=== PATIENT | female | born 1945 | race Caucasian/White ===

== ENCOUNTER 2018-06-21 15:59 | Inpatient (IN) ==
--- NOTE | 2018-06-21 16:25 | Emergency Department Note ---
Disposition Clinical Impression: Generalized weakness, Candidiasis Anemia Qualifiers: Anemia type: unspecified type Qualified Code(s): D64.9 - Anemia, unspecified Skin ulceration Qualifiers: Non-pressure ulcer stage: limited to breakdown of skin Qualified Code(s): L98.491 - Non-pressure chronic ulcer of skin of other sites limited to breakdown of skin Disposition: Admitted As Inpatient Condition: Undetermined Referrals: Rosita Boyer MD [Primary Care Provider] - Forms: ED Satisfaction Letter Time of Disposition: 20:37 General Adult HPI - General Chief complaint: ED Weakness Stated complaint: weakness Time Seen by Provider: 06/21/18 16:07 Source: patient, family, EMS Mode of arrival: EMS Limitations: no limitations Nursing Notes Reviewed: Yes Vital Signs Reviewed: Yes - History of Present Illness HPI Narrative: 72 ear olf female with history of CHF, anemia arrives to the emergency department with complaint of bilateral groin sores and generalized weakness and inability to care for herself at home. Patient denies any other specific complaint: Fever, chills, abdominal pain. She is uncomfortable on evaluation the room secondary to the ulcerations in her groin. There is no signs of peritoneal findings. No ecchymosis. No signs of gangrene noted. She has good pulses bilateral lower extremity. Her abdomen is nontender to palpation. Vital signs are stable. Patient lucid and answering questions appropriately. Pain Scale: 0 - Related Data Home Medications Medication Instructions Recorded Confirmed Aspirin [Lo-Dose Aspirin EC] 81 mg PO DAILY 04/13/16 06/21/18 Atorvastatin [Lipitor] 40 mg PO HS 04/13/16 06/21/18 Carvedilol [Coreg] 25 mg PO BID 04/13/16 06/21/18 Citalopram [CeleXA] 20 mg PO DAILY 04/13/16 06/21/18 Ezetimibe [Zetia] 10 mg PO DAILY 04/13/16 06/21/18 Furosemide [Lasix] 20 mg PO DAILY 04/13/16 06/21/18 Lisinopril [Zestril] 40 mg PO DAILY 04/13/16 06/21/18 Potassium Chloride [Klor-Con] 20 meq PO DAILY 04/13/16 06/21/18 Allergies Allergy/AdvReac Type Severity Reaction Status Date / Time Sulfa (Sulfonamide Allergy Hives Verified 04/13/16 11:32 Antibiotics) adhesive tape AdvReac Redness of Verified 04/13/16 11:32 Skin All systems ED: reviewed and negative except as stated. Constitutional: Reports: weakness. Denies: fever, chills ENT ED: Denies: dysphagia Cardiovascular: Denies: chest pain Respiratory: Denies: dyspnea Gastrointestinal: Denies: abdominal pain, nausea, vomiting, diarrhea, constipation Genitourinary: Denies: urgency, dysuria, frequency, hematuria, discharge Musculoskeletal: Denies: back pain, neck pain Integumentary: Reports: rash, lesions Neurological: Denies: headache Past Medical History - Past Medical History Attestation: Yes The following information was validated with the patient. Source: patient, old records reviewed Medical history: Reports: cardiomyopathy, CHF, hyperlipidemia Surgical history: Reports: appendectomy, pacemaker/AICD Psychiatric history: Reports: no psych history - Social History Smoking Status: Never smoker Smokeless Tobacco Status: No Alcohol use: Reports: none Drug use: Reports: none Physical Exam - General Limitations: no limitations General appearance: alert, in no apparent distress - Head Head exam: atraumatic, normocephalic, normal inspection - Eye Eye exam: Present: normal appearance, PERRL, EOMI - ENT ENT exam: normal exam, normal oropharynx, mucous membranes moist - Neck Neck exam: Present: normal inspection, full ROM, trachea midline - Chest Chest inspection: Present: normal inspection, symmetric chest wall rise - Respiratory Respiratory exam: Present: normal lung sounds bilaterally - Cardiovascular Cardiovascular exam: Present: regular rate, normal rhythm, normal heart sounds - Abdominal Exam Abdominal exam: Present: soft, Non-Tender. Absent: tenderness, distention, guarding, rebound, rigidity - Extremities Exam Extremities exam: Present: normal inspection, full ROM, normal capillary refill. Absent: tenderness, pedal edema - Neurological Exam Neurological exam: Present: alert, oriented X3 - Skin Skin exam: Present: warm, dry, other (Patient has erythema and seeping wounds with serosanguineous discharge in bilateral groins. Erythematous in this area as well. Nontender to palpation. No crepitus noted.) Course Vital Signs Temperature 98.1 F 06/21/18 16:08 Pulse Rate 59 06/21/18 16:08 Respiratory Rate 18 06/21/18 16:08 Blood Pressure 134/56 06/21/18 16:08 O2 Sat by Pulse Oximetry 100 06/21/18 16:08 Temperature 98.1 F 06/21/18 16:08 Pulse Rate 59 06/21/18 18:54 Respiratory Rate 18 06/21/18 18:54 Blood Pressure 118/56 06/21/18 18:54 O2 Sat by Pulse Oximetry 96 06/21/18 18:54 Oxygen Delivery Oxygen Delivery Room Air Medical Decision Making - MDM Narrative Medical decision making narrative: Patient's evaluation in the emergency department demonstrates an anemia patient at 6.3 hemoglobin. She was transfused 2 units of blood. Patient was also found to have bilateral groin ulcerations secondary to what appears to be candidiasis. There is mild erythematous the patient was given vancomycin and Rocephin as well as 1 dose of Diflucan here in the emergency department. Abdomen pelvis CT scan demonstrates concern for acute cholecystitis but ultrasound of the gallbladder dentures no acute findings other than some biliary sludge. The patient will be admitted to the hospital at this time with concerns for the inability care in aVL, infection of bilateral groins, CHF exacerbation as well as anemia. Patient made aware and agrees to plan. Accepted the hospitalist by Dr. Mae. - Lab Data Lab results reviewed: Yes I reviewed the patient's lab results. Result diagrams: 06/21/18 17:04 06/21/18 17:04 Lab Results 06/21/18 06/21/18 06/21/18 Range/Units 17:04 17:04 17:04 WBC 7.8 (4.3-11.1) K/mcL RBC 3.58 L (3.82-4.97) M/mcL Hgb 6.3 L (11.5-15.4) g/dL Hct 23.5 L (35.3-44.9) % MCV 65.6 L (83.0-100.0) fL MCH 17.6 L (28.0-33.3) pg MCHC 26.8 L (31.6-35.5) g/dL RDW 19.7 H (11.5-14.5) % Plt Count 304 (140-400) K/mcL MPV 8.5 L (9.4-12.4) fL Immature Gran % 0.8 (0-4) % Seg Neutrophils % 71.6 % Lymphocytes % 15.2 % Monocytes % 7.8 % Eosinophils % 4.1 % Basophils % 0.5 % Neutrophils # 5.6 (1.6-8.9) K/mcL Lymphocytes # 1.2 (0.6-4.6) K/mcL Monocytes # 0.6 (0.0-1.3) K/mcL Eosinophils # 0.3 (0.0-0.6) K/mcL Basophils # 0.0 (0.0-0.2) K/mcL Platelet Estimate Normal (Normal) Polychromasia 1+ A (Not Present) Hypochromasia Present A (Not Present) Poikilocytosis 1+ A (Not Present) Anisocytosis 1+ A (Not Present) Ovalocytes 1+ A (Not Present) Sodium 140 (136-145) mEq/L Potassium 4.0 (3.5-5.1) mEq/L Chloride 109 H (98-107) mEq/L Carbon Dioxide 24 (23-29) mEq/L BUN 24 H (8-23) mg/dL Creatinine 0.97 (0.60-1.20) mg/dL Est GFR ( Amer) > 60 (> 60) Est GFR (Non-Af Amer) 56 L (> 60) BUN/Creatinine Ratio 25 (6-26) Glucose 108 H (70-105) mg/dL Calculated Osmolality 295 (280-300) Lactic Acid (0.5-2.2) mmol/L Calcium 9.2 (8.6-10.3) mg/dL Total Bilirubin 0.5 (0.3-1.0) mg/dL Direct Bilirubin 0.1 (0.0-0.2) mg/dL Indirect Bilirubin 0.4 (0.0-1.2) mg/dL AST 9 L (13-39) Units/L ALT 8 (7-52) Units/L Alkaline Phosphatase 32 L (34-104) Units/L B-Natriuretic Peptide 616 H (Less than 100) pg/mL Serum Total Protein 6.6 (6.4-8.9) g/dL Albumin 3.2 L (3.5-5.7) g/dL Globulin 3.4 (2.4-3.5) g/dL Albumin/Globulin Ratio 0.9 L (1.1-2.2) Urine Color (Yellow) Urine Clarity (Clear) Urine pH (5.0-8.0) pH Units Ur Specific [place] (1.010-1.025) Urine Protein (Neg-Trace) mg/dL Urine Glucose (UA) (Normal) mg/dL Urine Ketones (Negative) mg/dL Urine Blood (Negative) Urine Nitrite (Negative) Urine Bilirubin (Negative) Urine Urobilinogen (Normal) mg/dL Ur Leukocyte Esterase (Negative) Urine Microscopic RBC (0-3) per hpf Urine Microscopic WBC (0-3) per hpf Ur Squamous Epith Cells (None-Few) per lpf Urine Bacteria (None-Few) per hpf Hyaline Casts (None-Few) per lpf WBC Casts (None Seen) per lpf Ur Culture Indicated? (NO) Blood Type Antibody Screen Crossmatch 06/21/18 06/21/18 06/21/18 Range/Units 18:05 18:41 18:52 WBC (4.3-11.1) K/mcL RBC (3.82-4.97) M/mcL Hgb (11.5-15.4) g/dL Hct (35.3-44.9) % MCV (83.0-100.0) fL MCH (28.0-33.3) pg MCHC (31.6-35.5) g/dL RDW (11.5-14.5) % Plt Count (140-400) K/mcL MPV (9.4-12.4) fL Immature Gran % (0-4) % Seg Neutrophils % % Lymphocytes % % Monocytes % % Eosinophils % % Basophils % % Neutrophils # (1.6-8.9) K/mcL Lymphocytes # (0.6-4.6) K/mcL Monocytes # (0.0-1.3) K/mcL Eosinophils # (0.0-0.6) K/mcL Basophils # (0.0-0.2) K/mcL Platelet Estimate (Normal) Polychromasia (Not Present) Hypochromasia (Not Present) Poikilocytosis (Not Present) Anisocytosis (Not Present) Ovalocytes (Not Present) Sodium (136-145) mEq/L Potassium (3.5-5.1) mEq/L Chloride (98-107) mEq/L Carbon Dioxide (23-29) mEq/L BUN (8-23) mg/dL Creatinine (0.60-1.20) mg/dL Est GFR ( Amer) (> 60) Est GFR (Non-Af Amer) (> 60) BUN/Creatinine Ratio (6-26) Glucose (70-105) mg/dL Calculated Osmolality (280-300) Lactic Acid 1.4 (0.5-2.2) mmol/L Calcium (8.6-10.3) mg/dL Total Bilirubin (0.3-1.0) mg/dL Direct Bilirubin (0.0-0.2) mg/dL Indirect Bilirubin (0.0-1.2) mg/dL AST (13-39) Units/L ALT (7-52) Units/L Alkaline Phosphatase (34-104) Units/L B-Natriuretic Peptide (Less than 100) pg/mL Serum Total Protein (6.4-8.9) g/dL Albumin (3.5-5.7) g/dL Globulin (2.4-3.5) g/dL Albumin/Globulin Ratio (1.1-2.2) Urine Color Yellow (Yellow) Urine Clarity Clear (Clear) Urine pH 5.5 (5.0-8.0) pH Units Ur Specific [place] 1.016 (1.010-1.025) Urine Protein Trace (Neg-Trace) mg/dL Urine Glucose (UA) Normal (Normal) mg/dL Urine Ketones Negative (Negative) mg/dL Urine Blood Negative (Negative) Urine Nitrite Negative (Negative) Urine Bilirubin Negative (Negative) Urine Urobilinogen Normal (Normal) mg/dL Ur Leukocyte Esterase Small H (Negative) Urine Microscopic RBC 0-3 (0-3) per hpf Urine Microscopic WBC 5-15 H (0-3) per hpf Ur Squamous Epith Cells Many H (None-Few) per lpf Urine Bacteria None Seen (None-Few) per hpf Hyaline Casts Moderate H (None-Few) per lpf WBC Casts Few H (None Seen) per lpf Ur Culture Indicated? NO. A (NO) Blood Type A POSITIVE Antibody Screen NEGATIVE Crossmatch See Detail - Radiology Data Radiology results reviewed: Yes I reviewed the patient's radiology results. Abdomen/Pelvis CT 06/21/18 16:08 IMPRESSION: 1. Possible acute cholecystitis. 2. Benign left adrenal adenoma requires no additional evaluation or follow-up. 3. Calcific atherosclerotic disease aorta. 4. Pelvic ventral hernias contain a portion of colon and a portion of small bowel without evidence of obstruction at this time. 5. Nonspecific right inguinal lymph node enlargement is probably reactive. D/ / Evan Vegas / Evan Vegas Interpreting Provider: Evan Vegas Chest X-Ray 06/21/18 16:08 IMPRESSION: Negative portable chest. D/ / Rah Page MD / Rah Page MD Interpreting Provider: Rah Page MD Gallbladder Ultrasound 06/21/18 18:26 IMPRESSION: Trace amount of sludge in the nondistended gallbladder. No overt findings of acute cholecystitis. D/ / Rah Page MD / Rah Page MD Interpreting Provider: Rah Page MD - EKG Data EKG #2 EKG attestation: Yes I reviewed and interpreted this EKG. EKG results narrative: Heart rate 58 beats for minute. Normal sinus rhythm. No ST elevation noted. E KG similar to EKG from 04/13/2016.
[2018-06-21 17:19] LABS: Basophils % 0.5 %; Eosinophils # 0.3 K/mcL (0.0-0.6); Eosinophils % 4.1 %; Hematocrit 23.5 % (35.3-44.9); Hemoglobin 6.3 g/dL (11.5-15.4); Immature Granulocytes % 0.8 % (0-4); Lymphocytes # 1.2 K/mcL (0.6-4.6); Lymphocytes % 15.2 %; Mean Corpuscular HGB Conc 26.8 g/dL (31.6-35.5); Mean Corpuscular Hemoglobin 17.6 pg (28.0-33.3); Mean Corpuscular Volume 65.6 fL (83.0-100.0); Mean Platelet Volume 8.5 fL (9.4-12.4); Monocytes # 0.6 K/mcL (0.0-1.3); Monocytes % 7.8 %; Neutrophils # 5.6 K/mcL (1.6-8.9); Platelet Count 304 K/mcL (140-400); Red Blood Count 3.58 M/mcL (3.82-4.97); Red Cell Distribution Width 19.7 % (11.5-14.5); Segmented Neutrophils % 71.6 %
[2018-06-21 17:39] LABS: BUN/Creatinine Ratio 25 (6-26); Blood Urea Nitrogen 24 mg/dL (8-23); Calcium 9.2 mg/dL (8.6-10.3); Carbon Dioxide 24 mEq/L (23-29); Chloride 109 mEq/L (98-107); Glucose 108 mg/dL (70-105); Osmolality,Calculated 295 (280-300); Sodium 140 mEq/L (136-145); eGFR For Non-African Americans 56 (> 60)
[2018-06-21 17:42] LABS: Hypochromasia Present (Not Present); Ovalocytes 1+ (Not Present)
[2018-06-21 17:43] LABS: Anisocytosis 1+ (Not Present); Polychromasia 1+ (Not Present)
[2018-06-21 17:44] LABS: Poikilocytosis 1+ (Not Present)
[2018-06-21 17:45] LABS: Platelet Estimate Normal (Normal)
[2018-06-21 18:15] LABS: Bilirubin,Urine Negative (Negative); Blood,Urine Negative (Negative); Clarity,Urine Clear (Clear); Color,Urine Yellow (Yellow); Glucose,Urine (UA) Normal (Normal); Ketones,Urine Negative (Negative); Leukocyte Esterase,Urine Small (Negative); Nitrite,Urine Negative (Negative); PH,Urine 5.5 pH Units (5.0-8.0); Protein,Urine Trace mg/dL (Neg-Trace); Specific Gravity,Urine 1.016 (1.010-1.025); Urobilinogen,Urine Normal (Normal)
[2018-06-21 18:18] LABS: Bacteria,Urine None Seen per hpf (None-Few); Hyaline Casts,Urine Moderate per lpf (None-Few); RBC,Urine 0-3 per hpf (0-3); Squamous Epithelial Cell,Urine Many per lpf (None-Few)
[2018-06-21 18:35] LABS: White Blood Cell Casts,Urine Few per lpf (None Seen)
[2018-06-21] MEDS ORDERED: *HR* FentaNYL (PF) 100 MCG/2 ML VIAL IVP ONE (19:35)
[2018-06-21 20:06] LABS: Alanine Aminotransferase 8 Units/L (7-52); Albumin 3.2 g/dL (3.5-5.7); Albumin/Globulin Ratio 0.9 (1.1-2.2); Alkaline Phosphatase 32 Units/L (34-104); Aspartate Amino Transferase 9 Units/L (13-39); Bilirubin,Direct 0.1 mg/dL (0.0-0.2); Bilirubin,Indirect 0.4 mg/dL (0.0-1.2); Bilirubin,Total 0.5 mg/dL (0.3-1.0); Globulin 3.4 g/dL (2.4-3.5); Total Protein 6.6 g/dL (6.4-8.9)
[2018-06-21] MEDS ORDERED: 0.9 % Sodium Chloride 250 ML ONE (20:20)
--- NOTE | 2018-06-21 20:33 | Emergency Department Note ---
Disposition Clinical Impression: Anemia Qualifiers: Anemia type: unspecified type Qualified Code(s): D64.9 - Anemia, unspecified Disposition: Admitted As Inpatient Condition: Good Referrals: Rosita Boyer MD [Primary Care Provider] - Forms: ED Satisfaction Letter General Adult HPI - General Chief complaint: ED Weakness Stated complaint: weakness Time Seen by Provider: 06/21/18 16:07 Source: patient, family, EMS Mode of arrival: EMS Limitations: no limitations - History of Present Illness Pain Scale: 0 - Related Data Home Medications Medication Instructions Recorded Confirmed Aspirin [Lo-Dose Aspirin EC] 81 mg PO DAILY 04/13/16 06/21/18 Atorvastatin [Lipitor] 40 mg PO HS 04/13/16 06/21/18 Carvedilol [Coreg] 25 mg PO BID 04/13/16 06/21/18 Citalopram [CeleXA] 20 mg PO DAILY 04/13/16 06/21/18 Ezetimibe [Zetia] 10 mg PO DAILY 04/13/16 06/21/18 Furosemide [Lasix] 20 mg PO DAILY 04/13/16 06/21/18 Lisinopril [Zestril] 40 mg PO DAILY 04/13/16 06/21/18 Potassium Chloride [Klor-Con] 20 meq PO DAILY 04/13/16 06/21/18 Allergies Allergy/AdvReac Type Severity Reaction Status Date / Time Sulfa (Sulfonamide Allergy Hives Verified 04/13/16 11:32 Antibiotics) adhesive tape AdvReac Redness of Verified 04/13/16 11:32 Skin Constitutional: Reports: weakness. Denies: fever, chills ENT ED: Denies: dysphagia Cardiovascular: Denies: chest pain Respiratory: Denies: dyspnea Gastrointestinal: Denies: abdominal pain, nausea, vomiting, diarrhea, constipation Genitourinary: Denies: urgency, dysuria, frequency, hematuria, discharge Musculoskeletal: Denies: back pain, neck pain Integumentary: Reports: rash, lesions Neurological: Denies: headache Past Medical History - Past Medical History Medical history: Reports: cardiomyopathy, CHF, hyperlipidemia Surgical history: Reports: appendectomy, pacemaker/AICD Psychiatric history: Reports: no psych history - Social History Smoking Status: Never smoker Smokeless Tobacco Status: No Alcohol use: Reports: none Drug use: Reports: none Physical Exam - General Limitations: no limitations General appearance: alert, in no apparent distress Course Vital Signs Temperature 98.1 F 06/21/18 16:08 Pulse Rate 59 06/21/18 16:08 Respiratory Rate 18 06/21/18 16:08 Blood Pressure 134/56 06/21/18 16:08 O2 Sat by Pulse Oximetry 100 06/21/18 16:08 Temperature 98.1 F 06/21/18 16:08 Pulse Rate 59 06/21/18 18:54 Respiratory Rate 18 06/21/18 18:54 Blood Pressure 118/56 06/21/18 18:54 O2 Sat by Pulse Oximetry 96 06/21/18 18:54 Oxygen Delivery Oxygen Delivery Room Air Medical Decision Making - Lab Data Result diagrams: 06/21/18 17:04 06/21/18 17:04 Lab Results 06/21/18 06/21/18 06/21/18 Range/Units 17:04 17:04 17:04 WBC 7.8 (4.3-11.1) K/mcL RBC 3.58 L (3.82-4.97) M/mcL Hgb 6.3 L (11.5-15.4) g/dL Hct 23.5 L (35.3-44.9) % MCV 65.6 L (83.0-100.0) fL MCH 17.6 L (28.0-33.3) pg MCHC 26.8 L (31.6-35.5) g/dL RDW 19.7 H (11.5-14.5) % Plt Count 304 (140-400) K/mcL MPV 8.5 L (9.4-12.4) fL Immature Gran % 0.8 (0-4) % Seg Neutrophils % 71.6 % Lymphocytes % 15.2 % Monocytes % 7.8 % Eosinophils % 4.1 % Basophils % 0.5 % Neutrophils # 5.6 (1.6-8.9) K/mcL Lymphocytes # 1.2 (0.6-4.6) K/mcL Monocytes # 0.6 (0.0-1.3) K/mcL Eosinophils # 0.3 (0.0-0.6) K/mcL Basophils # 0.0 (0.0-0.2) K/mcL Platelet Estimate Normal (Normal) Polychromasia 1+ A (Not Present) Hypochromasia Present A (Not Present) Poikilocytosis 1+ A (Not Present) Anisocytosis 1+ A (Not Present) Ovalocytes 1+ A (Not Present) Sodium 140 (136-145) mEq/L Potassium 4.0 (3.5-5.1) mEq/L Chloride 109 H (98-107) mEq/L Carbon Dioxide 24 (23-29) mEq/L BUN 24 H (8-23) mg/dL Creatinine 0.97 (0.60-1.20) mg/dL Est GFR ( Amer) > 60 (> 60) Est GFR (Non-Af Amer) 56 L (> 60) BUN/Creatinine Ratio 25 (6-26) Glucose 108 H (70-105) mg/dL Calculated Osmolality 295 (280-300) Lactic Acid (0.5-2.2) mmol/L Calcium 9.2 (8.6-10.3) mg/dL Total Bilirubin 0.5 (0.3-1.0) mg/dL Direct Bilirubin 0.1 (0.0-0.2) mg/dL Indirect Bilirubin 0.4 (0.0-1.2) mg/dL AST 9 L (13-39) Units/L ALT 8 (7-52) Units/L Alkaline Phosphatase 32 L (34-104) Units/L B-Natriuretic Peptide 616 H (Less than 100) pg/mL Serum Total Protein 6.6 (6.4-8.9) g/dL Albumin 3.2 L (3.5-5.7) g/dL Globulin 3.4 (2.4-3.5) g/dL Albumin/Globulin Ratio 0.9 L (1.1-2.2) Urine Color (Yellow) Urine Clarity (Clear) Urine pH (5.0-8.0) pH Units Ur Specific [place] (1.010-1.025) Urine Protein (Neg-Trace) mg/dL Urine Glucose (UA) (Normal) mg/dL Urine Ketones (Negative) mg/dL Urine Blood (Negative) Urine Nitrite (Negative) Urine Bilirubin (Negative) Urine Urobilinogen (Normal) mg/dL Ur Leukocyte Esterase (Negative) Urine Microscopic RBC (0-3) per hpf Urine Microscopic WBC (0-3) per hpf Ur Squamous Epith Cells (None-Few) per lpf Urine Bacteria (None-Few) per hpf Hyaline Casts (None-Few) per lpf WBC Casts (None Seen) per lpf Ur Culture Indicated? (NO) Blood Type Antibody Screen Crossmatch 06/21/18 06/21/18 06/21/18 Range/Units 18:05 18:41 18:52 WBC (4.3-11.1) K/mcL RBC (3.82-4.97) M/mcL Hgb (11.5-15.4) g/dL Hct (35.3-44.9) % MCV (83.0-100.0) fL MCH (28.0-33.3) pg MCHC (31.6-35.5) g/dL RDW (11.5-14.5) % Plt Count (140-400) K/mcL MPV (9.4-12.4) fL Immature Gran % (0-4) % Seg Neutrophils % % Lymphocytes % % Monocytes % % Eosinophils % % Basophils % % Neutrophils # (1.6-8.9) K/mcL Lymphocytes # (0.6-4.6) K/mcL Monocytes # (0.0-1.3) K/mcL Eosinophils # (0.0-0.6) K/mcL Basophils # (0.0-0.2) K/mcL Platelet Estimate (Normal) Polychromasia (Not Present) Hypochromasia (Not Present) Poikilocytosis (Not Present) Anisocytosis (Not Present) Ovalocytes (Not Present) Sodium (136-145) mEq/L Potassium (3.5-5.1) mEq/L Chloride (98-107) mEq/L Carbon Dioxide (23-29) mEq/L BUN (8-23) mg/dL Creatinine (0.60-1.20) mg/dL Est GFR ( Amer) (> 60) Est GFR (Non-Af Amer) (> 60) BUN/Creatinine Ratio (6-26) Glucose (70-105) mg/dL Calculated Osmolality (280-300) Lactic Acid 1.4 (0.5-2.2) mmol/L Calcium (8.6-10.3) mg/dL Total Bilirubin (0.3-1.0) mg/dL Direct Bilirubin (0.0-0.2) mg/dL Indirect Bilirubin (0.0-1.2) mg/dL AST (13-39) Units/L ALT (7-52) Units/L Alkaline Phosphatase (34-104) Units/L B-Natriuretic Peptide (Less than 100) pg/mL Serum Total Protein (6.4-8.9) g/dL Albumin (3.5-5.7) g/dL Globulin (2.4-3.5) g/dL Albumin/Globulin Ratio (1.1-2.2) Urine Color Yellow (Yellow) Urine Clarity Clear (Clear) Urine pH 5.5 (5.0-8.0) pH Units Ur Specific [place] 1.016 (1.010-1.025) Urine Protein Trace (Neg-Trace) mg/dL Urine Glucose (UA) Normal (Normal) mg/dL Urine Ketones Negative (Negative) mg/dL Urine Blood Negative (Negative) Urine Nitrite Negative (Negative) Urine Bilirubin Negative (Negative) Urine Urobilinogen Normal (Normal) mg/dL Ur Leukocyte Esterase Small H (Negative) Urine Microscopic RBC 0-3 (0-3) per hpf Urine Microscopic WBC 5-15 H (0-3) per hpf Ur Squamous Epith Cells Many H (None-Few) per lpf Urine Bacteria None Seen (None-Few) per hpf Hyaline Casts Moderate H (None-Few) per lpf WBC Casts Few H (None Seen) per lpf Ur Culture Indicated? NO. A (NO) Blood Type A POSITIVE Antibody Screen NEGATIVE Crossmatch See Detail Attestation Statement - Attestation Attestation: I examined this patient and my medical decision-making was reviewed with the Resident Physician. I agree with the documented findings, disposition and treatment plan as described except to the extent set forth below. 72 year old female presents to the Ed with complaints of waekness and it appears that she is anemic to 6.9 which is new for her although she has a fmaily histor of fe defecient anemia. Patient states that she most recently was dianogsed with bed bugs in her house and she dnies bloody stools and her last colonscopy was over 20 years ago. She has howveer required transfsions in the past. Patinet ABCT found to be concerning for acute liana, followu RUQ US does now show acute liana. She has also elevaed BNP for CHF. Patient will recieve a blood transfusion and will be admitted to medicine
[2018-06-21] MEDS ORDERED: cefTRIAXone 1,000 MG in Water for inj. (sterile) 20 ML 10 ML IVP ONE (20:34)
[2018-06-21] MEDS ORDERED: Fluconazole 100 MG TABLET PO ONE (20:34)
[2018-06-21 20:39] LABS: INR 1.4; Prothrombin Time 16.3 Seconds (9.4-12.1)
[2018-06-21 20:41] LABS: Activated Partial Thrombo Time 30.6 Seconds (26.0-36.0)
[2018-06-21] MEDS ORDERED: Naloxone 0.4 MG/ML INJ IVP PRN (23:00)
--- NOTE | 2018-06-21 23:03 | Internal Med History&Physical ---
Date of Encounter: 06/21/18 Time of Encounter: 22:40 Internal Medicine - H&P: HPI Chief complaint: Generalized weakness History of present illness: Ms. Maddox is a 72 year old female with a past medical history of cardiomyopathy status post ICD, hypertension, CHF, and hyperlipidemia who presented to the ED with complaints of generalized weakness, malaise and family's concern for her inability to care for herself anymore. Patient states that she has been feeling weak for the past month. She reports that she typically craves ice when she is anemic and should have suspected that her counts were down. Patient reports that the last time she had her blood work done was about 5 months ago and states that her hemoglobin was relatively normal at this time. She denies any dark looking stools or blood in her stool. Denies being on any blood thinner however, has been taking NSAIDs chronically, specifically ibuprofen, on and off for the past year for her arthritis. Patient states she has been taking it almost daily up until a few days ago. She denies any epigastric pain but does report nausea. Patient also endorses dyspnea with exertion and states that she has been taking her Lasix every other day as opposed to daily for the past 2 weeks due to her dyspnea and having to get up and go to the bathroom frequently. She was noted to have a hemoglobin of 6.3. 2 units of packed red blood cells were ordered in the ED. Patient was noted to have bilateral growing ulcerations secondary to what appears to be fungal infection. CT of the abdomen was performed which showed findings concerning for acute cholecystitis. Right upper quadrant ultrasound was performed subsequently which demonstrated no evidence of stones, however, some biliary sludge was noted. Patient is being admitted for anemia concerning for GI bleed. Past Med Surg Social Fam HX - Past Medical History Medical history: cardiomyopathy, CHF, hyperlipidemia Psychiatric history: no psych history - Past Surgical History Surgical History: appendectomy, pacemaker/AICD Additional surgical history: T&A - Social History Smoking Status: Never smoker Smokeless Tobacco Status: No Alcohol use: none Drug use: none - Family History Mother Hx Family Cardiac Disorders: Yes Father Hx Family GI Disorders: Yes Internal Medicine - H&P: Meds Aspirin [Lo-Dose Aspirin EC] 81 mg PO DAILY 04/13/16 [History] Atorvastatin [Lipitor] 40 mg PO HS 04/13/16 [History] Carvedilol [Coreg] 25 mg PO BID 04/13/16 [History] Citalopram [CeleXA] 20 mg PO DAILY 04/13/16 [History] Ezetimibe [Zetia] 10 mg PO DAILY 04/13/16 [History] Furosemide [Lasix] 20 mg PO DAILY 04/13/16 [History] Lisinopril [Zestril] 40 mg PO DAILY 04/13/16 [History] Potassium Chloride [Klor-Con] 20 meq PO DAILY 04/13/16 [History] Allergy/AdvReac Type Severity Reaction Status Date / Time Sulfa (Sulfonamide Allergy Hives Verified 04/13/16 11:32 Antibiotics) adhesive tape AdvReac Redness of Verified 04/13/16 11:32 Skin All Systems PM: A 10-system review of systems was performed and is negative for pertinent findings except as documented above in the HPI. - Constitutional Constitutional: no chills, no fever(s), no night sweats - EENT Eyes: no change in vision, no discharge, no pain, no photophobia Ears: no ear discharge, no ear pain, no tinnitus Nose, mouth and throat: no dysphagia, no nasal discharge, no neck pain, no sore throat - Cardiovascular Cardiovascular ROS IM: no chest pain, no diaphoresis, no dyspnea, no lightheadedness, no palpitations, no syncope - Respiratory Respiratory: no cough, no dyspnea, no wheezing, no excessive phlegm production - Gastrointestinal Gastrointestinal: no abdominal pain, no diarrhea, no hematemesis, no hematochezia, no melena, no nausea, no vomiting - Genitourinary Genitourinary: no change in urinary stream, no dysuria, no flank pain, no hematuria - Musculoskeletal Musculoskeletal ROS IM: no numbness, no tingling - Integumentary Integumentary IM: no rash, no unusual bruising - Neurological Neurological ROS: no confusion, no convulsions, no focal weakness, no numbness, no tingling, no tremor(s) - Hematologic/Lymphatic Hematologic/Lymphatic: no easy bruising - Constitutional Vitals: Temp Pulse Resp BP Pulse Ox 98.1 F 61 18 134/51 100 06/21/18 21:01 06/21/18 21:01 06/21/18 21:01 06/21/18 21:01 06/21/18 21:01 Exam: General: Alert and oriented 3 lying in bed in no acute distress Skin: Erythema within the abdominal skin folds with foul-smelling odor HEENT:EOM, pupils equal, round and reactive. Cardiovascular:Normal S1 & S2, no rubs, murmurs or gallops. No JVD. Pulse regular. Lungs:Normal breath sounds, no wheezes or crackles. Abdomen:Soft, non-tender, no rigidity. Extremities:No deformity, 2+ pitting edema up to the mid gold. Neurological:Normal cognition and motor skills. Pulses:Carotid and radial pulses normal +2. Rest of the physical exam is non contributory Internal Med - H&P Results - Labs CBC & Chem 7: 06/22/18 06:34 06/22/18 06:34 Labs: Short CBC 06/21/18 Range/Units 17:04 WBC 7.8 (4.3-11.1) K/mcL Hgb 6.3 L (11.5-15.4) g/dL Hct 23.5 L (35.3-44.9) % Plt Count 304 (140-400) K/mcL Neutrophils # 5.6 (1.6-8.9) K/mcL BMP 06/21/18 17:04 Sodium 140 Potassium 4.0 Chloride 109 H Carbon Dioxide 24 BUN 24 H Creatinine 0.97 Glucose 108 H Calcium 9.2 Liver Function 06/21/18 Range/Units 17:04 Total Bilirubin 0.5 (0.3-1.0) mg/dL Direct Bilirubin 0.1 (0.0-0.2) mg/dL AST 9 L (13-39) Units/L ALT 8 (7-52) Units/L Alkaline Phosphatase 32 L (34-104) Units/L Albumin 3.2 L (3.5-5.7) g/dL Urine 06/21/18 Range/Units 18:05 Urine Color Yellow (Yellow) Urine Clarity Clear (Clear) Urine pH 5.5 (5.0-8.0) pH Units Ur Specific [place] 1.016 (1.010-1.025) Urine Protein Trace (Neg-Trace) mg/dL Urine Glucose (UA) Normal (Normal) mg/dL - Impressions ITS Impressions Abdomen/Pelvis CT 06/21/18 16:08 IMPRESSION: 1. Possible acute cholecystitis. 2. Benign left adrenal adenoma requires no additional evaluation or follow-up. 3. Calcific atherosclerotic disease aorta. 4. Pelvic ventral hernias contain a portion of colon and a portion of small bowel without evidence of obstruction at this time. 5. Nonspecific right inguinal lymph node enlargement is probably reactive. D/ / Evan Vegas / Evan Vegas Interpreting Provider: Evan Vegas Chest X-Ray 06/21/18 16:08 IMPRESSION: Negative portable chest. D/ / Rah Page MD / Rah Page MD Interpreting Provider: Rah Page MD Gallbladder Ultrasound 06/21/18 18:26 IMPRESSION: Trace amount of sludge in the nondistended gallbladder. No overt findings of acute cholecystitis. D/ / Rah Page MD / Rah Page MD Interpreting Provider: Rah Page MD - Assessment and Plan (1) Anemia Current Visit: Yes Status: Acute Assessment and plan: Microcytic anemia concerning for upper GI bleed given patient's history of chronic NSAID use. Patient reports last colonoscopy approximately 20 years ago. Denies any melena or hematochezia. -Continue with transfusion of 2 units of packed red blood cells -We will check for stool occult blood -We will start patient on Protonix 40 mg IV push twice a day -GI consult. We will keep patient NPO any event she will require upper endoscopy in the morning. Qualifiers: Qualified Code(s): D64.9 - Anemia, unspecified (2) Candidiasis Current Visit: Yes Status: Acute Assessment and plan: Intertriginous erythema suspicious for candidiasis. -Continue with fluconazole -Nystatin powder (3) Generalized weakness Current Visit: Yes Status: Acute Assessment and plan: Generalized weakness in the setting of significant anemia. Likely contributing factor. -Continue blood transfusion -We will obtain echocardiogram (4) Exertional dyspnea Current Visit: Yes Status: Acute Assessment and plan: Exertional dyspnea likely secondary to anemia. Also concern for mild CHF exacerbation given medication noncompliance. Patient reports taking her Lasix every other day as opposed to daily. -At this time we will continue blood transfusion -We will obtain echocardiogram -Hold Lasix for now (5) DVT prophylaxis Current Visit: Yes Status: Acute - Time Spent With Patient Total time spent is greater than 50% in coordination of care (as documented) at patient's floor/unit and/or counseling patient:
[2018-06-22] MEDS ORDERED: 0.9 % Sodium Chloride 250 ML ONE (00:39)
[2018-06-22] MEDS: Ondansetron 4 MG/2 ML VIAL IVP SCH ×4 (00:53→18:55)
[2018-06-22] MEDS: Nystatin POWDER 30 GM BOTTLE TP SCH ×4 (01:11→22:20)
[2018-06-22] MEDS ORDERED: OXYCODONE Oral CONC 10 MG/0.5 ML ORAL.SYG SL ONE (03:14)
[2018-06-22] MEDS: Pantoprazole 40 MG VIAL IVP SCH ×2 (06:18→16:30)
[2018-06-22 06:53] LABS: Red Blood Count 4.04 M/mcL (3.82-4.97)
[2018-06-22 06:54] LABS: Hematocrit 27.4 % (35.3-44.9); Hemoglobin 7.5 g/dL (11.5-15.4); Mean Corpuscular HGB Conc 27.4 g/dL (31.6-35.5); Mean Corpuscular Hemoglobin 18.6 pg (28.0-33.3); Mean Corpuscular Volume 67.8 fL (83.0-100.0); Mean Platelet Volume 8.7 fL (9.4-12.4); Platelet Count 283 K/mcL (140-400); Red Cell Distribution Width 22.7 % (11.5-14.5)
[2018-06-22 07:02] LABS: INR 1.4
[2018-06-22 07:04] LABS: Activated Partial Thrombo Time 30.9 Seconds (26.0-36.0)
[2018-06-22 07:15] LABS: BUN/Creatinine Ratio 26 (6-26); Blood Urea Nitrogen 24 mg/dL (8-23); Calcium 9.3 mg/dL (8.6-10.3); Carbon Dioxide 25 mEq/L (23-29); Chloride 109 mEq/L (98-107); Glucose 122 mg/dL (70-105); Osmolality,Calculated 301 (280-300); Potassium 4.2 mEq/L (3.5-5.1); Sodium 143 mEq/L (136-145); eGFR For Non-African Americans 59 (> 60)
[2018-06-22 09:20] LABS: % Iron Saturation 5 % (15-50); Iron 18 mcg/dL (50-170); Transferrin 285 mg/dL (203-362)
[2018-06-22] MEDS: Aspirin Enteric Coated 81 MG Tablet PO SCH (09:24)
[2018-06-22] MEDS: Lisinopril 20 MG TABLET PO SCH (09:26)
[2018-06-22] MEDS: (Ezetimibe [Zetia] 10 MG) PO SCH (09:31)
[2018-06-22 09:38] LABS: Ferritin 8 ng/mL (10-120)
[2018-06-22 09:55] LABS: Folate 3.4 ng/mL (3.0-16.0)
--- NOTE | 2018-06-22 11:20 | Anesthesia Evaluation PreOp ---
Date of Encounter: 06/22/18 Time of Encounter: 11:18 - Past History Planned Operation: EGD Cardiac History: CHF, HTN, Hyperlipidemia, Pacemaker/ICD (interogated today - Last non sustained run VT 05/20/2018), Other (Cardiomyopathy) Pulmonary History: Denies Any Significant HX REGISTERED APPRAISER History: Other (anxiety) Other Medical History: Other (GI bleed - transfused with 2 u PRBC this admission) Anesthesia History: No Prior Anesthetic Complications, Past Anesthesia (T&A, AICD, appy) : No Alcohol Use: none Drug use: none Medications and Allergies Aspirin [Lo-Dose Aspirin EC] 81 mg PO DAILY 04/13/16 [History] Atorvastatin [Lipitor] 40 mg PO HS 04/13/16 [History] Carvedilol [Coreg] 25 mg PO BID 04/13/16 [History] Citalopram [CeleXA] 20 mg PO DAILY 04/13/16 [History] Ezetimibe [Zetia] 10 mg PO DAILY 04/13/16 [History] Furosemide [Lasix] 20 mg PO DAILY 04/13/16 [History] Lisinopril [Zestril] 40 mg PO DAILY 04/13/16 [History] Potassium Chloride [Klor-Con] 20 meq PO DAILY 04/13/16 [History] Allergy/AdvReac Type Severity Reaction Status Date / Time Sulfa (Sulfonamide Allergy Hives Verified 04/13/16 11:32 Antibiotics) adhesive tape AdvReac Redness of Verified 04/13/16 11:32 Skin - Meds/Allergy Pre-op Review Medications Reviewed: Yes Allergies Reviewed: Yes Beta Blockers on Current Med List: Yes If Beta Blockers taken, Date/Time (Last Dose taken): 09:25 today Anesthesia Results - Labs 06/22/18 06:34 06/22/18 06:34 - Imaging EKG: report reviewed (Sinus arrhythmia IVCD Nonspecific ST-T wave changes) Additional studies: Echo with Imaging Enhancement Agent Name: Mckenzie Maddox Date of Study: 03/08/2016 Impressions: LVEF 60%. Normal LV chamber size and function. Mild concentric left ventricular hypertrophy. Mild left ventricular diastolic dysfunction. Right ventricle was not well visualized. No evidence of pulmonary hypertension identified. A device lead was visualized in the right atrium and right ventricle. Technically sub-optimal due to body habitus. Anesthesia Exam Vital Signs/O2 Sat, Most Current Temp Pulse Resp BP Pulse Ox 97.8 F 69 18 132/68 98 06/22/18 10:06/22/18 10:06/22/18 10:06/22/18 10:06/22/18 10:26 NPO (# of Hours): > 8 hrs Pain Scale: 0 Pain Scale Used: Numeric (1 - 10) - HEENT Pupil (Motor): Pupils equal, EOMI Mallampati: III Teeth: Missing Denture Type: Upper: Partial Oral Opening: Greater than 3 - REGISTERED APPRAISER LOC: Oriented REGISTERED APPRAISER Motor: Normal RUE, Normal LUE, Normal RLE, Normal LLE, Normal Face REGISTERED APPRAISER Sensory: Normal: RUE, LUE, RLE, LLE, Face - Cardiac Rhythm: Regular Murmur: None JVD: No Carotid Bruit: No - Pulmonary Breath Sounds: bilateral Clear Respiratory Effort: Symmetrical Anesthesia Assess/Plan ASA Score: 3 Anesthetic Plan: MAC Autologous Blood: Yes Monitoring Plan: Standard Monitors Recovery Plan: Other
--- NOTE | 2018-06-22 12:58 | Gastroenterology Consult Note ---
<Pillo Moran - Last Filed: 06/22/18 12:53> Date of Encounter: 06/22/18 Time of Encounter: 10:30 - Assessment and plan (1) Anemia Current Visit: Yes Status: Acute Assessment and plan: On admission, Hgb 6.3 with MCV 65.6. This AM Hgb 7.5 after 2 units PRBC. Fecal occult blood test was positive. Continue to monitor CBC and transfuse PRBC as needed. Plan for EGD today to r/o esophagitis, gastritis, duodenitis, PUD, MW tear, or AVM. Keep NPO for EGD. Qualifiers: Anemia type: unspecified type Qualified Code(s): D64.9 - Anemia, unspecified - Time Spent With Patient Total time spent is greater than 50% in coordination of care (as documented) at patient's floor/unit and/or counseling patient: GI History of Present Illness - Data of Consult Patient: new to practice Consult date: 06/22/18 Requesting Physician: Faviola Mae MD - Consult Narrative Reason for consult: anemia History of present illness: Ms. Maddox is a 72 year old female with PMHx of cardiomyopathy s/p ICD, CHF, HLD who presented to the ED with complaints of generalized weakness, malaise and family's concern for her inability to care for herself anymore. Patient states that she has been feeling weak for the past month. We were consulted to evaluate her anemia. She states she has been using ibuprofen chronically for the past year for her arthritis. On admission, Hgb 6.3 with MCV 65.6. This AM Hgb 7.5 after 2 units PRBC. Fecal occult blood test was positive. CT A/P with possible acute cholecystitis. Gallbladder ultrasound with shared amount of sludge and nondistended gallbladder, no acute cholecystitis noted. Procedures: None NSAIDs: ASA Anticoagulation: None Past Med Surg Social Fam HX - Past Medical History Medical history: cardiomyopathy, CHF, hyperlipidemia Psychiatric history: no psych history - Past Surgical History Surgical History: appendectomy, pacemaker/AICD Additional surgical history: T&A - Social History Smoking Status: Never smoker Smokeless Tobacco Status: No Alcohol use: none Drug use: none - Family History Father Hx Family GI Disorders: Yes Mother Hx Family Cardiac Disorders: Yes - Gastrointestinal Gastrointestinal: Present: as per HPI - Constitutional Constitutional: as per HPI - EENT Eyes: as per HPI Ears: Present: as per HPI Nose, mouth and throat: Present: as per HPI - Cardiovascular Cardiovascular ROS: Present: as per HPI - Respiratory Respiratory IM: Present: as per HPI - Genitourinary Genitourinary: Absent: change in color, Urinary frequency - Neurological ROS Neurological GI: Present: as per HPI - Hematologic/Lymphatic Hematologic/Lymphatic pediatric: Present: as per HPI - Musculoskeletal Musculoskeletal ROS GI: Present: as per HPI - Integumentary Integumentary GI: Present: as per HPI - Psychiatric ROS Psychiatric GI: Present: as per HPI - Endocrine Endocrine IM: Present: as per HPI - Constitutional Vitals: Temp Pulse Resp BP Pulse Ox 97.8 F 69 18 132/68 98 06/22/18 10:26 06/22/18 10:26 06/22/18 10:26 06/22/18 10:26 06/22/18 10:26 General appearance: Present: cooperative, A&O X 3, no acute distress, answers questions appropriately - Head Head exam: Present: atraumatic, normocephalic - Eye Eye exam: Present: normal appearance, sclera anicteric - ENT ENT exam: Present: mucous membranes dry - Neck Neck exam general surgery: Present: normal inspection, trachea midline - Respiratory Respiratory exam: Present: decreased breath sounds, CTAB. Absent: rales, rhonchi - Cardiovascular Cardiovascular exam: Present: RRR, +S1, +S2 - GI/Abdominal GI/Abdominal exam: Present: soft, no peritoneal signs. Absent: distended, firm, guarding, tenderness - Rectal Rectal exam: Present: deferred - Extremities Exam Extremities exam: Present: warm - Neurological Exam Neurological exam: Present: no focal deficits - Psychiatric Psychiatric exam: Present: normal affect, normal mood - Skin Skin exam: Present: dry, intact, normal color, warm Results - Labs CBC & Chem 7: 06/22/18 06:34 06/22/18 06:34 Labs: Last Result Calcium 9.3 mg/dL (8.6-10.3) 06/22/18 06:34 Iron 18 mcg/dL (50-170) L 06/22/18 06:34 % Saturation 5 % (15-50) L 06/22/18 06:34 Transferrin 285 mg/dL (203-362) 06/22/18 06:34 Ferritin 8 ng/mL (10-120) L 06/22/18 06:34 Vitamin B12 695 pg/mL (250-1100) 06/22/18 06:33 Folate 3.4 ng/mL (3.0-16.0) 06/22/18 06:33 Entire Visit Hgb 7.5 g/dL (11.5-15.4) L 06/22/18 06:34 Hct 27.4 % (35.3-44.9) L 06/22/18 06:34 PT 16.0 Seconds (9.4-12.1) H 06/22/18 06:34 Ferritin 8 ng/mL (10-120) L 06/22/18 06:34 Total Bilirubin 0.5 mg/dL (0.3-1.0) 06/21/18 17:04 AST 9 Units/L (13-39) L 06/21/18 17:04 ALT 8 Units/L (7-52) 06/21/18 17:04 Folate 3.4 ng/mL (3.0-16.0) 06/22/18 06:33 - ABG ABG results: PT/INR, D-dimer PT 16.0 Seconds (9.4-12.1) H 06/22/18 06:34 - Impressions Impressions Abdomen/Pelvis CT 06/21/18 16:08 IMPRESSION: 1. Possible acute cholecystitis. 2. Benign left adrenal adenoma requires no additional evaluation or follow-up. 3. Calcific atherosclerotic disease aorta. 4. Pelvic ventral hernias contain a portion of colon and a portion of small bowel without evidence of obstruction at this time. 5. Nonspecific right inguinal lymph node enlargement is probably reactive. D/ / Evan Vegas / Evan Vegas Interpreting Provider: Evan Vegas Chest X-Ray 06/21/18 16:08 IMPRESSION: Negative portable chest. D/ / Rah Page MD / Rah Page MD Interpreting Provider: Rah Page MD Gallbladder Ultrasound 06/21/18 18:26 IMPRESSION: Trace amount of sludge in the nondistended gallbladder. No overt findings of acute cholecystitis. D/ / Rah Page MD / Rah Page MD Interpreting Provider: Rah Page MD Echocardiogram 06/22/18 10:30 Impressions: LVEF 60%. Not all LV wall segments were optimally visualized. Moderate left ventricular diastolic dysfunction. Normal right ventricular structure and function. Mild mitral regurgitation. Mild tricuspid regurgitation. No pulmonary hypertension by TR signal obtained. A device lead was visualized in the right atrium and right ventricle. Left Ventricular Wall Motion: Rest Echo Findings The apical anterior, mid anterior and basal anterior you were not visualized. All other wall segments showed normal motion. Findings: Study Quality * Technically challenging due to body habitus. Patient had difficulty cooperating with exam. ECG Findings * Sinus bradycardia, HR 50's. Left Ventricle * LVEF 60%. * Normal LV chamber size. * Wall thickness measurements are normal on this study. * Moderate left ventricular diastolic dysfunction. Right Ventricle * Normal right ventricular structure and function. Left Atrium * Mildly dilated left atrium. Right Atrium * Normal right atrial size. Aortic Valve * No aortic regurgitation. * Aortic valve not well visualized. * No aortic stenosis. Mitral Valve * Mild mitral regurgitation. * Normal mitral valve structure. * No mitral stenosis. Tricuspid Valve * Tricuspid valve not well visualized. * Mild tricuspid regurgitation. Pulmonic Valve * Pulmonic valve is not well visualized. * No pulmonic stenosis. * No pulmonic regurgitation. Pulmonary Artery * Pulmonary artery not well visualized. Aorta * Normally sized aortic root. Pericardium * There is no pericardial effusion present. Interatrial Septum * Interatrial septum not well evaluated. IVC * The IVC is not well evaluated. Device lead * A device lead was visualized in the right atrium and right ventricle. Consult Discharge Plan - Plan Referrals: Mitul Helms MD [Non-Partnered Physician] - 06/29/18 11:00 am <Grayson Devine - Last Filed: 06/28/18 05:39> Date of Encounter: 06/22/18 - Time Spent With Patient Total time spent is greater than 50% in coordination of care (as documented) at patient's floor/unit and/or counseling patient: GI History of Present Illness - Data of Consult Requesting Physician: Faviola Mae MD - Consult Narrative History of present illness: Ms. Maddox is a 72 year old female - Constitutional Vitals: Temp Pulse Resp BP Pulse Ox 98.1 F 61 16 110/61 93 06/28/18 04:03 06/28/18 04:03 06/28/18 04:03 06/28/18 04:03 06/28/18 04:03 Results - Labs CBC & Chem 7: 06/28/18 04:00 06/28/18 04:00 Labs: Last Result Calcium 9.0 mg/dL (8.6-10.3) 06/28/18 04:00 Iron 183 mcg/dL (50-170) H 06/28/18 04:00 % Saturation 50 % (15-50) 06/28/18 04:00 Transferrin 259 mg/dL (203-362) 06/28/18 04:00 Ferritin 8 ng/mL (10-120) L 06/22/18 06:34 Vitamin B12 695 pg/mL (250-1100) 06/22/18 06:33 Folate 3.4 ng/mL (3.0-16.0) 06/22/18 06:33 Stool Occult Blood Negative (Negative) 06/25/18 13:00 Entire Visit Hgb 7.8 g/dL (11.5-15.4) L 06/28/18 04:00 Hct 28.7 % (35.3-44.9) L 06/28/18 04:00 PT 16.0 Seconds (9.4-12.1) H 06/22/18 06:34 Ferritin 8 ng/mL (10-120) L 06/22/18 06:34 Total Bilirubin 0.5 mg/dL (0.3-1.0) 06/21/18 17:04 AST 9 Units/L (13-39) L 06/21/18 17:04 ALT 8 Units/L (7-52) 06/21/18 17:04 Folate 3.4 ng/mL (3.0-16.0) 06/22/18 06:33 - ABG ABG results: PT/INR, D-dimer PT 16.0 Seconds (9.4-12.1) H 06/22/18 06:34 - Attending Attestation Agree with EGD Plan that today. I have personally performed a face to face evaluation on this patient. I have reviewed and agree with the care plan. History and Exam by me shows:
[2018-06-22] MEDS ORDERED: *HR* Propofol 200 MG/20 ML VIAL IVP ONE (13:38)
--- NOTE | 2018-06-22 14:47 | Internal Med Progress Note ---
Hospitalist Progress Note - Encounter Date of Encounter: 06/22/18 Time of Encounter: 14:47 - Subjective Interval History: Patient was seen and examined at bedside currently complains of back pain she is to undergo EGD today no signs or symptoms of active bleeding - Exam Vitals: Temp Pulse Resp BP Pulse Ox 97.8 F 60 16 137/60 96 06/22/18 10:26 06/22/18 14:35 06/22/18 14:35 06/22/18 14:35 06/22/18 14:35 Exam: General: Alert and oriented 3 lying in bed in no acute distress Skin: Erythema within the abdominal skin folds HEENT:EOM, pupils equal, round and reactive. Cardiovascular:Normal S1 & S2, no rubs, murmurs or gallops. No JVD. Pulse regular. Lungs:Normal breath sounds, no wheezes or crackles. Abdomen:Soft, non-tender, no rigidity. Extremities:No deformity, 2+ pitting edema up to the mid gold. Neurological:Normal cognition and motor skills. Pulses:Carotid and radial pulses normal +2. Rest of the physical exam is non contributory - Assessment and Plan (1) Anemia Current Visit: Yes Status: Acute Assessment and Plan: Microcytic anemia concerning for upper GI bleed given patient's history of chronic NSAID use. Patient reports last colonoscopy approximately 20 years ago. Denies any melena or hematochezia. Patient has received 2 units PRBCs hemoglobin this a.m. is 7.5 we will continue to monitor closely. I did discuss with GI no further transfusions at this time -stool occult blood positive -Continue Protonix 40 mg IV push twice a day -GI consult. We will keep patient NPO any event she will require upper endoscopy (2) Generalized weakness Current Visit: Yes Status: Acute Assessment and Plan: Generalized weakness in the setting of significant anemia. Likely contributing factor. -Received 2 units PRBCs -We will obtain echocardiogram Consult PT OT (3) Candidiasis Current Visit: Yes Status: Acute Assessment and Plan: Intertriginous erythema suspicious for candidiasis. -Continue with fluconazole -Nystatin powder (4) DVT prophylaxis Current Visit: Yes Status: Acute Assessment and Plan: 1 SCDs due to anemia (5) Exertional dyspnea Current Visit: Yes Status: Acute Assessment and Plan: Exertional dyspnea likely secondary to anemia. Also concern for mild CHF exacerbation given medication noncompliance. Patient reports taking her Lasix every other day as opposed to daily. -2 units PRBCs -We will obtain echocardiogram-pending -Hold Lasix for now - Time Spent with Patient Total time spent is greater than 50% in coordination of care (as documented) at patient's floor/unit and/or counseling patient: Internal Medicine: Result - Labs CBC & Chem 7: 06/22/18 06:34 06/22/18 06:34 Labs: Short CBC 06/21/18 06/22/18 Range/Units 17:04 06:34 WBC 7.8 7.6 (4.3-11.1) K/mcL Hgb 6.3 L 7.5 L (11.5-15.4) g/dL Hct 23.5 L 27.4 L (35.3-44.9) % Plt Count 304 283 (140-400) K/mcL Neutrophils # 5.6 (1.6-8.9) K/mcL BMP 06/21/18 06/22/18 17:04 06:34 Sodium 140 143 Potassium 4.0 4.2 Chloride 109 H 109 H Carbon Dioxide 24 25 BUN 24 H 24 H Creatinine 0.97 0.94 Glucose 108 H 122 H Calcium 9.2 9.3 Liver Function 06/21/18 Range/Units 17:04 Total Bilirubin 0.5 (0.3-1.0) mg/dL Direct Bilirubin 0.1 (0.0-0.2) mg/dL AST 9 L (13-39) Units/L ALT 8 (7-52) Units/L Alkaline Phosphatase 32 L (34-104) Units/L Albumin 3.2 L (3.5-5.7) g/dL Urine 06/21/18 Range/Units 18:05 Urine Color Yellow (Yellow) Urine Clarity Clear (Clear) Urine pH 5.5 (5.0-8.0) pH Units Ur Specific [place] 1.016 (1.010-1.025) Urine Protein Trace (Neg-Trace) mg/dL Urine Glucose (UA) Normal (Normal) mg/dL - ABG Interpretation ABG results: PT/INR, D-dimer PT 16.0 Seconds (9.4-12.1) H 06/22/18 06:34 - Impressions Impressions Abdomen/Pelvis CT 06/21/18 16:08 IMPRESSION: 1. Possible acute cholecystitis. 2. Benign left adrenal adenoma requires no additional evaluation or follow-up. 3. Calcific atherosclerotic disease aorta. 4. Pelvic ventral hernias contain a portion of colon and a portion of small bowel without evidence of obstruction at this time. 5. Nonspecific right inguinal lymph node enlargement is probably reactive. D/ / Evan Vegas / Evan Vegas Interpreting Provider: Evan Vegas Chest X-Ray 06/21/18 16:08 IMPRESSION: Negative portable chest. D/ / Rah Page MD / Rah Page MD Interpreting Provider: Rah Page MD Gallbladder Ultrasound 06/21/18 18:26 IMPRESSION: Trace amount of sludge in the nondistended gallbladder. No overt findings of acute cholecystitis. D/ / Rah Page MD / Rah Page MD Interpreting Provider: Rah Page MD Echocardiogram 06/22/18 10:30 Impressions: LVEF 60%. Not all LV wall segments were optimally visualized. Moderate left ventricular diastolic dysfunction. Normal right ventricular structure and function. Mild mitral regurgitation. Mild tricuspid regurgitation. No pulmonary hypertension by TR signal obtained. A device lead was visualized in the right atrium and right ventricle. Left Ventricular Wall Motion: Rest Echo Findings The apical anterior, mid anterior and basal anterior you were not visualized. All other wall segments showed normal motion. Findings: Study Quality * Technically challenging due to body habitus. Patient had difficulty cooperating with exam. ECG Findings * Sinus bradycardia, HR 50's. Left Ventricle * LVEF 60%. * Normal LV chamber size. * Wall thickness measurements are normal on this study. * Moderate left ventricular diastolic dysfunction. Right Ventricle * Normal right ventricular structure and function. Left Atrium * Mildly dilated left atrium. Right Atrium * Normal right atrial size. Aortic Valve * No aortic regurgitation. * Aortic valve not well visualized. * No aortic stenosis. Mitral Valve * Mild mitral regurgitation. * Normal mitral valve structure. * No mitral stenosis. Tricuspid Valve * Tricuspid valve not well visualized. * Mild tricuspid regurgitation. Pulmonic Valve * Pulmonic valve is not well visualized. * No pulmonic stenosis. * No pulmonic regurgitation. Pulmonary Artery * Pulmonary artery not well visualized. Aorta * Normally sized aortic root. Pericardium * There is no pericardial effusion present. Interatrial Septum * Interatrial septum not well evaluated. IVC * The IVC is not well evaluated. Device lead * A device lead was visualized in the right atrium and right ventricle. Consult Discharge Plan - Plan Referrals: Mitul Helms MD [Non-Partnered Physician] - 06/29/18 11:00 am (1) Anemia Qualifiers: Anemia type: unspecified type Qualified Code(s): D64.9 - Anemia, unspecified
--- NOTE | 2018-06-22 14:58 | Anesthesia Evaluation Post Op ---
Date of Encounter: 06/22/18 Time of Encounter: 14:56 - Vital Signs Vital Signs: 90/43, 48, 14, 100% - Lungs Lungs: Clear Ascult./Percussion - Airway Airway: Non-obstructed - Cardiovascular Regular Rate - Mental Status Mental Status: Asleep with brisk response to light stimulation - Pain Pain Scale: 0 Pain Scale used: Numeric (1 - 10) - Nausea Vomiting Nausea Vomiting: Not Present - Hydration Hydration: NPO, Has not voided - Discharge PostOp Status: Transfer Patient to floor
[2018-06-22] MEDS ORDERED: Acetaminophen 325 MG TABLET PO PRN (15:20)
[2018-06-22] MEDS ORDERED: Fluconazole 40 MG/ML UDC PO SCH (16:00)
[2018-06-22] MEDS: Fluconazole 100 MG TABLET PO SCH (17:39)
[2018-06-22 19:35] LABS: Immature Granulocytes % 0.6 % (0-4)
[2018-06-22 19:36] LABS: Basophils # 0.1 K/mcL (0.0-0.2); Basophils % 0.8 %; Eosinophils # 0.4 K/mcL (0.0-0.6); Eosinophils % 4.6 %; Hematocrit 32.5 % (35.3-44.9); Hemoglobin 8.8 g/dL (11.5-15.4); Lymphocytes # 1.6 K/mcL (0.6-4.6); Lymphocytes % 19.7 %; Mean Corpuscular HGB Conc 27.1 g/dL (31.6-35.5); Mean Corpuscular Hemoglobin 18.7 pg (28.0-33.3); Mean Platelet Volume 8.7 fL (9.4-12.4); Monocytes # 0.7 K/mcL (0.0-1.3); Monocytes % 8.6 %; Neutrophils # 5.2 K/mcL (1.6-8.9); Nucleated Red Blood Cells 0.5 /100 WBC (0); Platelet Count 307 K/mcL (140-400); Red Blood Count 4.71 M/mcL (3.82-4.97); Red Cell Distribution Width 22.8 % (11.5-14.5); Segmented Neutrophils % 65.7 %
[2018-06-22 20:13] LABS: Anisocytosis 2+ (Not Present); Hypochromasia Present (Not Present); Microcytosis Present (Not Present); Ovalocytes 1+ (Not Present); Platelet Estimate Normal (Normal); Poikilocytosis 1+ (Not Present)
[2018-06-23] MEDS: Ondansetron 4 MG/2 ML VIAL IVP SCH ×5 (01:09→23:32)
[2018-06-23 01:40] LABS: Basophils % 0.5 %; Mean Platelet Volume 8.6 fL (9.4-12.4); Nucleated Red Blood Cells 0.5 /100 WBC (0)
[2018-06-23 01:42] LABS: Eosinophils # 0.4 K/mcL (0.0-0.6); Eosinophils % 6.5 %; Hematocrit 28.1 % (35.3-44.9); Hemoglobin 7.7 g/dL (11.5-15.4); Immature Granulocytes % 0.6 % (0-4); Immature Platelets 0.8 % (1.1-6.1); Lymphocytes # 1.4 K/mcL (0.6-4.6); Lymphocytes % 21.1 %; Mean Corpuscular HGB Conc 27.4 g/dL (31.6-35.5); Mean Corpuscular Volume 69.4 fL (83.0-100.0); Monocytes # 0.8 K/mcL (0.0-1.3); Monocytes % 11.5 %; Platelet Count 304 K/mcL (140-400); Red Blood Count 4.05 M/mcL (3.82-4.97); Red Cell Distribution Width 22.5 % (11.5-14.5); Segmented Neutrophils % 59.8 %
[2018-06-23 02:08] LABS: Hypochromasia Present (Not Present); Ovalocytes 1+ (Not Present); Polychromasia 1+ (Not Present)
[2018-06-23 02:09] LABS: Platelet Estimate Normal (Normal)
[2018-06-23 02:59] LABS: Calcium 8.9 mg/dL (8.6-10.3); Potassium 4.5 mEq/L (3.5-5.1)
[2018-06-23] MEDS: *HR* HYDROcodone/Acet 5/325 mg TABLET PO PRN ×2 (04:19→14:45)
[2018-06-23] MEDS: Pantoprazole 40 MG VIAL IVP SCH ×2 (05:41→18:20)
[2018-06-23] MEDS: Lisinopril 20 MG TABLET PO SCH (09:27)
[2018-06-23] MEDS: Aspirin Enteric Coated 81 MG Tablet PO SCH (09:27)
[2018-06-23] MEDS: (Ezetimibe [Zetia] 10 MG) PO SCH (09:28)
[2018-06-23] MEDS: Nystatin POWDER 30 GM BOTTLE TP SCH ×3 (09:28→21:14)
[2018-06-23] MEDS: Fluconazole 100 MG TABLET PO SCH (09:28)
--- NOTE | 2018-06-23 09:39 | Internal Med Progress Note ---
Hospitalist Progress Note - Encounter Date of Encounter: 06/23/18 Time of Encounter: 09:39 - Subjective Interval History: Patient was seen and examined at bedside currently no active bleeding noted-aged her pain is controlled with pain medication - Exam Vitals: Temp Pulse Resp BP Pulse Ox 98.1 F 54 16 125/62 95 06/23/18 06:29 06/23/18 06:29 06/23/18 06:29 06/23/18 06:29 06/23/18 06:29 Exam: General: Alert and oriented 3 lying in bed in no acute distress Skin: Erythema within the abdominal skin folds HEENT:EOM, pupils equal, round and reactive. Cardiovascular:Normal S1 & S2, no rubs, murmurs or gallops. No JVD. Pulse regular. Lungs:Normal breath sounds, no wheezes or crackles. Abdomen:Soft, non-tender, no rigidity. Extremities:No deformity, 2+ pitting edema up to the mid gold. Neurological:Normal cognition and motor skills. Pulses:Carotid and radial pulses normal +2. Rest of the physical exam is non contributory - Assessment and Plan (1) Anemia Current Visit: Yes Status: Acute Assessment and Plan: Microcytic anemia concerning for upper GI bleed given patient's history of chronic NSAID use. Patient reports last colonoscopy approximately 20 years ago. Denies any melena or hematochezia. Patient has received 2 units PRBCs hemoglobin this a.m. is 7.5 we will continue to monitor closely. 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 Likely contributing factor. -Received 2 units PRBCs-hemoglobin stable at this time we will continue to monitor -We will obtain echocardiogram Consult PT OT-recommending ECF placement sr. social media & mobile manager consulted (3) Candidiasis Current Visit: Yes Status: Acute Assessment and Plan: Intertriginous erythema suspicious for candidiasis.-It appears improving today patient states feels much better -Continue with fluconazole -Nystatin powder (4) DVT prophylaxis Current Visit: Yes Status: Acute Assessment and Plan: 1 SCDs due to anemia (5) Exertional dyspnea Current Visit: Yes Status: Acute Assessment and Plan: Exertional dyspnea likely secondary to anemia. Also concern for mild CHF exacerbation given medication noncompliance. Patient reports taking her Lasix every other day as opposed to daily.-We will resume daily -2 units PRBCs hemoglobin stable today -Cardiac echo LVEF 60% normal LV wall segments were also visualized moderate left ventricular diastolic dysfunction normal right ventricular structure and function mild mitral regurgitation mild tricuspid regurgitation no pulmonary hypertension by TR signal obtained a device lead was visualized in the right atrium and right ventricle Continue with oxygen support - - Time Spent with Patient Total time spent is greater than 50% in coordination of care (as documented) at patient's floor/unit and/or counseling patient: Internal Medicine: Result - Labs CBC & Chem 7: 06/23/18 01:17 06/23/18 01:17 Labs: Short CBC 06/22/18 06/23/18 Range/Units 19:12 01:17 WBC 7.9 6.6 (4.3-11.1) K/mcL Hgb 8.8 L 7.7 L (11.5-15.4) g/dL Hct 32.5 L 28.1 L (35.3-44.9) % Plt Count 307 304 (140-400) K/mcL Neutrophils # 5.2 4.0 (1.6-8.9) K/mcL BMP 06/23/18 01:17 Sodium 141 Potassium 4.5 Chloride 112 H Carbon Dioxide 22 L BUN 24 H Creatinine 1.12 Glucose 107 H Calcium 8.9 - ABG Interpretation ABG results: PT/INR, D-dimer PT 16.0 Seconds (9.4-12.1) H 06/22/18 06:34 - Impressions Impressions Echocardiogram 06/22/18 10:30 Impressions: LVEF 60%. Not all LV wall segments were optimally visualized. Moderate left ventricular diastolic dysfunction. Normal right ventricular structure and function. Mild mitral regurgitation. Mild tricuspid regurgitation. No pulmonary hypertension by TR signal obtained. A device lead was visualized in the right atrium and right ventricle. Left Ventricular Wall Motion: Rest Echo Findings The apical anterior, mid anterior and basal anterior you were not visualized. All other wall segments showed normal motion. Findings: Study Quality * Technically challenging due to body habitus. Patient had difficulty cooperating with exam. ECG Findings * Sinus bradycardia, HR 50's. Left Ventricle * LVEF 60%. * Normal LV chamber size. * Wall thickness measurements are normal on this study. * Moderate left ventricular diastolic dysfunction. Right Ventricle * Normal right ventricular structure and function. Left Atrium * Mildly dilated left atrium. Right Atrium * Normal right atrial size. Aortic Valve * No aortic regurgitation. * Aortic valve not well visualized. * No aortic stenosis. Mitral Valve * Mild mitral regurgitation. * Normal mitral valve structure. * No mitral stenosis. Tricuspid Valve * Tricuspid valve not well visualized. * Mild tricuspid regurgitation. Pulmonic Valve * Pulmonic valve is not well visualized. * No pulmonic stenosis. * No pulmonic regurgitation. Pulmonary Artery * Pulmonary artery not well visualized. Aorta * Normally sized aortic root. Pericardium * There is no pericardial effusion present. Interatrial Septum * Interatrial septum not well evaluated. IVC * The IVC is not well evaluated. Device lead * A device lead was visualized in the right atrium and right ventricle. Consult Discharge Plan - Plan Referrals: Mitul Helms MD [Non-Partnered Physician] - 06/29/18 11:00 am (1) Anemia Qualifiers: Anemia type: unspecified type Qualified Code(s): D64.9 - Anemia, unspecified
[2018-06-23] MEDS ORDERED: Iron Sucrose Complex 400 MG in 0.9 % Sodium Chloride 250 ML IVPB ONE (17:09)
[2018-06-24] MEDS: Ondansetron 4 MG/2 ML VIAL IVP SCH ×4 (05:58→23:58)
[2018-06-24] MEDS: Pantoprazole 40 MG VIAL IVP SCH (05:58)
[2018-06-24 06:44] LABS: Mean Corpuscular HGB Conc 26.8 g/dL (31.6-35.5); Red Blood Count 3.91 M/mcL (3.82-4.97)
[2018-06-24 06:45] LABS: Basophils # 0.1 K/mcL (0.0-0.2); Basophils % 0.8 %; Eosinophils % 5.4 %; Hematocrit 27.6 % (35.3-44.9); Hemoglobin 7.4 g/dL (11.5-15.4); Immature Granulocytes % 0.8 % (0-4); Lymphocytes # 1.4 K/mcL (0.6-4.6); Lymphocytes % 22.5 %; Mean Corpuscular Hemoglobin 18.9 pg (28.0-33.3); Mean Corpuscular Volume 70.6 fL (83.0-100.0); Monocytes # 0.7 K/mcL (0.0-1.3); Neutrophils # 3.8 K/mcL (1.6-8.9); Nucleated Red Blood Cells 0.8 /100 WBC (0); Platelet Count 275 K/mcL (140-400); Segmented Neutrophils % 59.5 %
[2018-06-24 07:08] LABS: Eosinophils # 0.4 K/mcL (0.0-0.6)
[2018-06-24 08:04] LABS: Anisocytosis 1+ (Not Present); Hypochromasia Present (Not Present)
[2018-06-24 08:05] LABS: Microcytosis Present (Not Present); Ovalocytes 1+ (Not Present); Poikilocytosis 1+ (Not Present)
[2018-06-24 08:06] LABS: Platelet Estimate Normal (Normal)
[2018-06-24] MEDS: Aspirin Enteric Coated 81 MG Tablet PO SCH (09:17)
[2018-06-24] MEDS: (Ezetimibe [Zetia] 10 MG) PO SCH (09:18)
[2018-06-24] MEDS: Lisinopril 20 MG TABLET PO SCH (09:18)
[2018-06-24] MEDS: Nystatin POWDER 30 GM BOTTLE TP SCH ×3 (09:18→21:46)
[2018-06-24] MEDS: Fluconazole 100 MG TABLET PO SCH (09:18)
--- NOTE | 2018-06-24 09:23 | Internal Med Progress Note ---
Hospitalist Progress Note - Encounter Date of Encounter: 06/24/18 Time of Encounter: 09:12 - Subjective Interval History: Patient seen and examined at bedside denies any pain or discomfort no active bleeding noted. Currently waiting insurance authorization for [facility] placement - Exam Vitals: Temp Pulse Resp BP Pulse Ox 97.8 F 49 16 126/69 96 06/24/18 06:48 06/24/18 06:48 06/24/18 06:48 06/24/18 06:48 06/24/18 06:48 Exam: Patient was seen and examined at bedside. She does complain of some body aches or not she is doing well. She has been accepted at [facility] and we are waiting for insurance authorization - Assessment and Plan (1) Anemia Current Visit: Yes Status: Acute Assessment and Plan: Microcytic anemia concerning for upper GI bleed given patient's history of chronic NSAID use. Patient reports last colonoscopy approximately 20 years ago. Denies any melena or hematochezia. Patient has received 2 units PRBCs hemoglobin stable this a.m. at 7.4 we will continue to monitor closely. 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 Likely contributing factor. -Received 2 units PRBCs-hemoglobin stable at this time we will continue to monitor -echocardiogram Impressions: LVEF 60%. Not all LV wall segments were optimally visualized. Moderate left ventricular diastolic dysfunction. Normal right ventricular structure and function. Mild mitral regurgitation. Mild tricuspid regurgitation. No pulmonary hypertension by TR signal obtained. A device lead was visualized in the right atrium and right ventricle. Consult PT OT-recommending ECF placement social work assistant consulted-accepted [facility] awaiting insurance authorization (3) Candidiasis Current Visit: Yes Status: Acute Assessment and Plan: Intertriginous erythema suspicious for candidiasis.- -Continue with fluconazole -Nystatin powder (4) DVT prophylaxis Current Visit: Yes Status: Acute Assessment and Plan: 1 SCDs due to anemia (5) Exertional dyspnea Current Visit: Yes Status: Acute Assessment and Plan: Exertional dyspnea likely secondary to anemia. Also concern for mild CHF exacerbation given medication noncompliance. Patient reports taking her Lasix every other day as opposed to daily.-We will resume daily -2 units PRBCs hemoglobin stable today -Cardiac echo LVEF 60% normal LV wall segments were also visualized moderate left ventricular diastolic dysfunction normal right ventricular structure and function mild mitral regurgitation mild tricuspid regurgitation no pulmonary hypertension by TR signal obtained a device lead was visualized in the right atrium and right ventricle Continue with oxygen support - - Time Spent with Patient Total time spent is greater than 50% in coordination of care (as documented) at patient's floor/unit and/or counseling patient: Internal Medicine: Result - Labs CBC & Chem 7: 06/24/18 04:18 06/23/18 01:17 Labs: Short CBC 06/24/18 Range/Units 04:18 WBC 6.4 (4.3-11.1) K/mcL Hgb 7.4 L (11.5-15.4) g/dL Hct 27.6 L (35.3-44.9) % Plt Count 275 (140-400) K/mcL Neutrophils # 3.8 (1.6-8.9) K/mcL - ABG Interpretation ABG results: PT/INR, D-dimer PT 16.0 Seconds (9.4-12.1) H 06/22/18 06:34 Consult Discharge Plan - Plan Referrals: Mitul Helms MD [Non-Partnered Physician] - 06/29/18 11:00 am (1) Anemia Qualifiers: Anemia type: unspecified type Qualified Code(s): D64.9 - Anemia, unspecified
[2018-06-24 09:28] LABS: BUN/Creatinine Ratio 25 (6-26); Blood Urea Nitrogen 26 mg/dL (8-23); Calcium 9.1 mg/dL (8.6-10.3); Carbon Dioxide 25 mEq/L (23-29); Chloride 107 mEq/L (98-107); Glucose 94 mg/dL (70-105); Osmolality,Calculated 291 (280-300); Potassium 4.8 mEq/L (3.5-5.1); Sodium 138 mEq/L (136-145); eGFR For Non-African Americans 51 (> 60)
--- NOTE | 2018-06-24 14:53 | Electrocardiograph Report ---
[place] [id number] Test Date: 2018-06-21 Pat Name: Mckenzie Maddox Department: EXAMC5 Room: 3B44 Gender: F Senior Counsel: : 1945 Requested By: Brian Hay Order Number: [id number] Reading MD: Sulma York Measurements Intervals [place] Rate: 58 P: 77 VA: 134 QRS: 50 QRSD: 103 T: -71 QT: 418 QTc: 411 Interpretive Statements Sinus rhythm Low voltage, precordial leads Borderline repolarization abnormality Electronically Signed On 06-24-2018 14:52:06 EDT by Sulma York
[2018-06-24] MEDS: *HR* HYDROcodone/Acet 5/325 mg TABLET PO PRN (21:46)
[2018-06-25 04:54] LABS: Basophils % 0.8 %; Nucleated Red Blood Cells 0.5 /100 WBC (0); Platelet Count 283 K/mcL (140-400); Segmented Neutrophils % 55.6 %
[2018-06-25 04:55] LABS: Basophils # 0.1 K/mcL (0.0-0.2); Eosinophils # 0.5 K/mcL (0.0-0.6); Eosinophils % 7.2 %; Hematocrit 28.7 % (35.3-44.9); Hemoglobin 7.8 g/dL (11.5-15.4); Immature Granulocytes % 1.2 % (0-4); Lymphocytes # 1.7 K/mcL (0.6-4.6); Lymphocytes % 25.6 %; Mean Corpuscular HGB Conc 27.2 g/dL (31.6-35.5); Mean Corpuscular Hemoglobin 18.8 pg (28.0-33.3); Mean Corpuscular Volume 69.3 fL (83.0-100.0); Mean Platelet Volume 8.7 fL (9.4-12.4); Monocytes # 0.6 K/mcL (0.0-1.3); Monocytes % 9.6 %; Red Blood Count 4.14 M/mcL (3.82-4.97); Red Cell Distribution Width 24.2 % (11.5-14.5)
[2018-06-25 04:59] LABS: Neutrophils # 3.7 K/mcL (1.6-8.9)
[2018-06-25 05:09] LABS: BUN/Creatinine Ratio 24 (6-26); Blood Urea Nitrogen 23 mg/dL (8-23); Calcium 9.1 mg/dL (8.6-10.3); Carbon Dioxide 25 mEq/L (23-29); Chloride 108 mEq/L (98-107); Glucose 98 mg/dL (70-105); Osmolality,Calculated 286 (280-300); Potassium 4.7 mEq/L (3.5-5.1); Sodium 136 mEq/L (136-145); eGFR For Non-African Americans 58 (> 60)
[2018-06-25 05:16] LABS: Anisocytosis 2+ (Not Present)
[2018-06-25 05:17] LABS: Ovalocytes 1+ (Not Present); Platelet Estimate Normal (Normal); Poikilocytosis 1+ (Not Present); Polychromasia 1+ (Not Present)
[2018-06-25 05:26] LABS: Microcytosis Present (Not Present)
[2018-06-25 05:27] LABS: Hypochromasia Present (Not Present)
[2018-06-25] MEDS: Ondansetron 4 MG/2 ML VIAL IVP SCH ×4 (05:46→23:44)
[2018-06-25] MEDS: Lisinopril 20 MG TABLET PO SCH (09:47)
[2018-06-25] MEDS: Fluconazole 100 MG TABLET PO SCH (09:47)
[2018-06-25] MEDS: Aspirin Enteric Coated 81 MG Tablet PO SCH (09:47)
[2018-06-25] MEDS: (Ezetimibe [Zetia] 10 MG) PO SCH (09:47)
[2018-06-25] MEDS: Nystatin POWDER 30 GM BOTTLE TP SCH ×3 (09:47→21:20)
--- NOTE | 2018-06-25 11:20 | Internal Med Progress Note ---
Hospitalist Progress Note - Encounter Date of Encounter: 06/25/18 Time of Encounter: 11:17 - Subjective Interval History: Patient was seen and examined at bedside nursing staff was giving patient a back did evaluate underneath bolds it appears that Candidias is improving. Continue with current treatment plan patient states he feels much better. Hemoglobin stable at this time we will continue to monitor , awaiting insurance authorization for ECF placement - Exam Vitals: Temp Pulse Resp BP Pulse Ox 98.2 F 52 16 94/52 97 06/25/18 10:52 06/25/18 10:52 06/25/18 10:52 06/25/18 10:52 06/25/18 10:52 Exam: Patient was seen and examined at bedside. She does complain of some body aches or not she is doing well. She has been accepted at [facility] and we are waiting for insurance authorization - Assessment and Plan (1) Anemia Current Visit: Yes Status: Acute Assessment and Plan: Microcytic anemia concerning for upper GI bleed given patient's history of chronic NSAID use. Patient reports last colonoscopy approximately 20 years ago. Denies any melena or hematochezia. Patient has received 2 units PRBCs hemoglobin stable this a.m. at 7.8 we will continue to monitor closely. 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 Likely contributing factor. -Received 2 units PRBCs-hemoglobin stable at this time we will continue to monitor -echocardiogram Impressions: LVEF 60%. Not all LV wall segments were optimally visualized. Moderate left ventricular diastolic dysfunction. Normal right ventricular structure and function. Mild mitral regurgitation. Mild tricuspid regurgitation. No pulmonary hypertension by TR signal obtained. A device lead was visualized in the right atrium and right ventricle. Consult PT OT-recommending ECF placement social work nurse consulted-accepted [facility] awaiting insurance authorization (3) Candidiasis Current Visit: Yes Status: Acute Assessment and Plan: Intertriginous erythema suspicious for candidiasis.-Appears to be improving -Continue with fluconazole -Nystatin powder (4) DVT prophylaxis Current Visit: Yes Status: Acute Assessment and Plan: 1 SCDs due to anemia (5) Exertional dyspnea Current Visit: Yes Status: Acute Assessment and Plan: Exertional dyspnea likely secondary to anemia. Also concern for mild CHF exace rbation given medication noncompliance. Patient reports taking her Lasix every other day as opposed to daily.-We will resume daily -2 units PRBCs hemoglobin stable today -Cardiac echo LVEF 60% normal LV wall segments were also visualized moderate left ventricular diastolic dysfunction normal right ventricular structure and function mild mitral regurgitation mild tricuspid regurgitation no pulmonary hypertension by TR signal obtained a device lead was visualized in the right atrium and right ventricle Continue with oxygen support - - Time Spent with Patient Total time spent is greater than 50% in coordination of care (as documented) at patient's floor/unit and/or counseling patient: Internal Medicine: Result - Labs CBC & Chem 7: 06/25/18 04:14 06/25/18 04:14 Labs: Short CBC 06/25/18 Range/Units 04:14 WBC 6.6 (4.3-11.1) K/mcL Hgb 7.8 L (11.5-15.4) g/dL Hct 28.7 L (35.3-44.9) % Plt Count 283 (140-400) K/mcL Neutrophils # 3.7 (1.6-8.9) K/mcL BMP 06/25/18 04:14 Sodium 136 Potassium 4.7 Chloride 108 H Carbon Dioxide 25 BUN 23 Creatinine 0.95 Glucose 98 Calcium 9.1 - ABG Interpretation ABG results: PT/INR, D-dimer PT 16.0 Seconds (9.4-12.1) H 06/22/18 06:34 Consult Discharge Plan - Plan Referrals: Mitul Helms MD [Non-Partnered Physician] - 06/29/18 11:00 am (1) Anemia Qualifiers: Anemia type: unspecified type Qualified Code(s): D64.9 - Anemia, unspecified
[2018-06-25] MEDS: *HR* HYDROcodone/Acet 5/325 mg TABLET PO PRN ×2 (13:05→20:15)
[2018-06-25] MEDS: ALPRAZolam 0.25 MG TABLET PO PRN (13:05)
[2018-06-26] MEDS: Ondansetron 4 MG/2 ML VIAL IVP SCH ×4 (05:58→23:30)
[2018-06-26] MEDS: *HR* HYDROcodone/Acet 5/325 mg TABLET PO PRN ×2 (08:33→21:22)
[2018-06-26] MEDS: Fluconazole 100 MG TABLET PO SCH (08:33)
[2018-06-26] MEDS: (Ezetimibe [Zetia] 10 MG) PO SCH (08:34)
[2018-06-26] MEDS: Aspirin Enteric Coated 81 MG Tablet PO SCH (08:34)
[2018-06-26] MEDS: Lisinopril 20 MG TABLET PO SCH (08:34)
[2018-06-26] MEDS: Furosemide 20 MG TABLET PO SCH (08:34)
[2018-06-26] MEDS: Nystatin POWDER 30 GM BOTTLE TP SCH ×3 (10:58→21:24)
--- NOTE | 2018-06-26 11:14 | Internal Med Progress Note ---
Hospitalist Progress Note - Encounter Date of Encounter: 06/26/18 Time of Encounter: 11:14 - Subjective Interval History: His was seen and examined at bedside currently complains of overall body aches and pains. She is accepted at [facility] pending authorization per insurance - Exam Vitals: Temp Pulse Resp BP Pulse Ox 97.8 F 61 16 114/64 97 06/26/18 10:47 06/26/18 10:47 06/26/18 10:47 06/26/18 10:47 06/26/18 10:47 Exam: Skin: Skin under painis red however does appear much improved. She does have redness to her coccyx as well as multiple open lesions covering body Eyes: Sclera is white. There is no discharge from eyes. ENMT: Oral/pharyngeal mucosa is normal in appearance. There is no discharge from nose or ears. Respiratory: Normal breath sounds with no crackles and wheezes bilaterally. CV: Heart is regular with no gallop or murmur. GI: Abdomen is flat and soft with no palpable mass or visceromegaly. : There is no tenderness in patient's flanks bilaterally. Neuro exam: He has good strength in upper and lower extremities. He has normal eye movements. Psychiatric: He has normal affect. His thought process is appropriate to the situation. - Assessment and Plan (1) Anemia Current Visit: Yes Status: Acute Assessment and Plan: Microcytic anemia concerning for upper GI bleed given patient's history of chronic NSAID use. Patient reports last colonoscopy approximately 20 years ago. Denies any melena or hematochezia. Patient has received 2 units PRBCs hemoglobin stable this a.m. at 7.8 we will continue to monitor closely. -Patient started on oral iron supplements Ferous sulfate BID -stool occult blood positive -Protonix daily -GI consulted-underwent EGD which did show gastritis and erosive neuronopathy without bleeding-GI suspect NSAID-induced duodenopathy recommending avoiding aspirin - we will continue with Protonix (2) Generalized weakness Current Visit: Yes Status: Acute Assessment and Plan: Generalized weakness in the setting of significant anemia. Likely contributing factor. -Received 2 units PRBCs-hemoglobin stable at this time we will continue to monitor -echocardiogram Impressions: LVEF 60%. Not all LV wall segments were optimally visualized. Moderate left ventricular diastolic dysfunction. Normal right ventricular structure and function. Mild mitral regurgitation. Mild tricuspid regurgitation. No pulmonary hypertension by TR signal obtained. A device lead was visualized in the right atrium and right ventricle. Consult PT OT-recommending ECF placement social media coordinator consulted-accepted [facility] awaiting insurance authorization (3) Candidiasis Current Visit: Yes Status: Acute Assessment and Plan: Intertriginous erythema suspicious for candidiasis.-Appears to be improving -Continue with fluconazole -Nystatin powder (4) DVT prophylaxis Current Visit: Yes Status: Acute Assessment and Plan: 1 SCDs due to anemia (5) Exertional dyspnea Current Visit: Yes Status: Acute Assessment and Plan: Exertional dyspnea likely secondary to anemia. Also concern for mild CHF exacerbation given medication noncompliance. Patient reports taking her Lasix every other day as opposed to daily.-We will resume daily -2 units PRBCs hemoglobin stable today -Cardiac echo LVEF 60% normal LV wall segments were also visualized moderate left ventricular diastolic dysfunction normal right ventricular structure and function mild mitral regurgitation mild tricuspid regurgitation no pulmonary hypertension by TR signal obtained a device lead was visualized in the right atrium and right ventricle Continue with oxygen support - - Time Spent with Patient Total time spent is greater than 50% in coordination of care (as documented) at patient's floor/unit and/or counseling patient: Internal Medicine: Result - Labs CBC & Chem 7: 06/25/18 04:14 06/26/18 12:30 - ABG Interpretation ABG results: PT/INR, D-dimer PT 16.0 Seconds (9.4-12.1) H 06/22/18 06:34 Consult Discharge Plan - Plan Referrals: Mitul Helms MD [Non-Partnered Physician] - 06/29/18 11:00 am _ (1) Anemia Qualifiers: Anemia type: unspecified type Qualified Code(s): D64.9 - Anemia, unspecified
[2018-06-26 12:51] LABS: Hemoglobin 7.8 g/dL (11.5-15.4)
[2018-06-26 12:52] LABS: Basophils # 0.1 K/mcL (0.0-0.2); Basophils % 0.8 %; Eosinophils # 0.4 K/mcL (0.0-0.6); Eosinophils % 6.2 %; Hematocrit 28.1 % (35.3-44.9); Immature Granulocytes % 1.4 % (0-4); Lymphocytes # 1.3 K/mcL (0.6-4.6); Lymphocytes % 19.6 %; Mean Corpuscular HGB Conc 27.8 g/dL (31.6-35.5); Mean Corpuscular Hemoglobin 19.3 pg (28.0-33.3); Mean Corpuscular Volume 69.4 fL (83.0-100.0); Mean Platelet Volume 8.6 fL (9.4-12.4); Monocytes # 0.5 K/mcL (0.0-1.3); Monocytes % 8.3 %; Neutrophils # 4.1 K/mcL (1.6-8.9); Nucleated Red Blood Cells 0.3 /100 WBC (0); Platelet Count 272 K/mcL (140-400); Red Blood Count 4.05 M/mcL (3.82-4.97); Red Cell Distribution Width 24.9 % (11.5-14.5); Segmented Neutrophils % 63.7 %
[2018-06-26 13:09] LABS: BUN/Creatinine Ratio 23 (6-26); Blood Urea Nitrogen 21 mg/dL (8-23); Calcium 9.1 mg/dL (8.6-10.3); Carbon Dioxide 28 mEq/L (23-29); Chloride 104 mEq/L (98-107); Glucose 120 mg/dL (70-105); Osmolality,Calculated 286 (280-300); Potassium 4.9 mEq/L (3.5-5.1); Sodium 136 mEq/L (136-145); eGFR For Non-African Americans > 60 (> 60)
[2018-06-26 13:39] LABS: Anisocytosis 1+ (Not Present); Platelet Estimate Normal (Normal); Polychromasia 1+ (Not Present)
[2018-06-27] MEDS: Ondansetron 4 MG/2 ML VIAL IVP SCH ×2 (05:36→11:25)
[2018-06-27 05:39] LABS: Immature Granulocytes % 1.7 % (0-4)
[2018-06-27 05:41] LABS: Basophils # 0.1 K/mcL (0.0-0.2); Basophils % 0.8 %; Eosinophils # 0.5 K/mcL (0.0-0.6); Eosinophils % 7.1 %; Hematocrit 28.8 % (35.3-44.9); Hemoglobin 7.9 g/dL (11.5-15.4); Lymphocytes # 1.4 K/mcL (0.6-4.6); Lymphocytes % 19.3 %; Mean Corpuscular HGB Conc 27.4 g/dL (31.6-35.5); Mean Corpuscular Hemoglobin 19.4 pg (28.0-33.3); Mean Corpuscular Volume 70.6 fL (83.0-100.0); Mean Platelet Volume 8.5 fL (9.4-12.4); Monocytes # 0.6 K/mcL (0.0-1.3); Neutrophils # 4.4 K/mcL (1.6-8.9); Platelet Count 312 K/mcL (140-400); Red Blood Count 4.08 M/mcL (3.82-4.97); Red Cell Distribution Width 25.2 % (11.5-14.5); Segmented Neutrophils % 62.1 %
[2018-06-27 06:10] LABS: Hypochromasia Present (Not Present); Macrocytosis Present (Not Present); Ovalocytes 1+ (Not Present); Polychromasia 1+ (Not Present)
[2018-06-27 06:11] LABS: Microcytosis Present (Not Present); Platelet Estimate Normal (Normal)
[2018-06-27] MEDS: Nystatin POWDER 30 GM BOTTLE TP SCH ×3 (08:47→20:54)
[2018-06-27] MEDS: Furosemide 20 MG TABLET PO SCH (08:48)
[2018-06-27] MEDS: Aspirin Enteric Coated 81 MG Tablet PO SCH (08:48)
[2018-06-27] MEDS: Fluconazole 100 MG TABLET PO SCH (08:48)
[2018-06-27] MEDS: Lisinopril 20 MG TABLET PO SCH (08:48)
[2018-06-27] MEDS: (Ezetimibe [Zetia] 10 MG) PO SCH (08:49)
[2018-06-27] MEDS: *HR* HYDROcodone/Acet 5/325 mg TABLET PO PRN ×2 (08:50→20:49)
--- NOTE | 2018-06-27 11:29 | Internal Med Progress Note ---
Hospitalist Progress Note - Encounter Date of Encounter: 06/27/18 Time of Encounter: 11:29 - Subjective Interval History: Patient was seen and examined at bedside currently just complains of general body aches. Currently awaiting insurance approval to [facility] - Exam Vitals: Temp Pulse Resp BP Pulse Ox 98.0 F 52 16 92/54 93 06/27/18 11:19 06/27/18 11:19 06/27/18 11:19 06/27/18 11:19 06/27/18 11:19 Exam: Skin: Skin under painis red however does appear much improved. She does have redness to her coccyx as well as multiple open lesions covering body Eyes: Sclera is white. There is no discharge from eyes. ENMT: Oral/pharyngeal mucosa is normal in appearance. There is no discharge from nose or ears. Respiratory: Normal breath sounds with no crackles and wheezes bilaterally. CV: Heart is regular with no gallop or murmur. GI: Abdomen is flat and soft with no palpable mass or visceromegaly. : There is no tenderness in patient's flanks bilaterally. Neuro exam: He has good strength in upper and lower extremities. He has normal eye movements. Psychiatric: He has normal affect. His thought process is appropriate to the situation. - Assessment and Plan (1) Anemia Current Visit: Yes Status: Acute Assessment and Plan: Microcytic anemia concerning for upper GI bleed given patient's history of chronic NSAID use. Patient reports last colonoscopy approximately 20 years ago. Denies any melena or hematochezia. Patient has received 2 units PRBCs hemoglobin stable this a.m. at 7.8 we will continue to monitor closely. -Patient started on oral iron supplements Ferous sulfate BID -stool occult blood positive -Protonix daily -GI consulted-underwent EGD which did show gastritis and erosive what duodenopathy without bleeding-GI suspect NSAID-induced duodenopathy recommending avoiding aspirin - we will continue with Protonix Iron supplements (2) Generalized weakness Current Visit: Yes Status: Acute Assessment and Plan: Generalized weakness in the setting of significant anemia. Likely contributing factor. -Received 2 units PRBCs-hemoglobin stable at this time we will continue to monitor -echocardiogram Impressions: LVEF 60%. Not all LV wall segments were optimally visualized. Moderate left ventricular diastolic dysfunction. Normal right ventricular structure and function. Mild mitral regurgitation. Mild tricuspid regurgitation. No pulmonary hypertension by TR signal obtained. A device lead was visualized in the right atrium and right ventricle. Consult PT OT-recommending ECF placement social media marketing specialist consulted-accepted [facility] awaiting insurance authorization (3) Candidiasis Current Visit: Yes Status: Acute Assessment and Plan: Intertriginous erythema suspicious for candidiasis.-Appears to be improving -Discontinue fluconazole -Nystatin powder (4) DVT prophylaxis Current Visit: Yes Status: Acute Assessment and Plan: 1 SCDs due to anemia (5) Exertional dyspnea Current Visit: Yes Status: Acute Assessment and Plan: Exertional dyspnea likely secondary to anemia. Also concern for mild CHF exacer bation given medication noncompliance. Patient reports taking her Lasix every other day as opposed to daily.-We will resume daily -2 units PRBCs hemoglobin stable today -Cardiac echo LVEF 60% normal LV wall segments were also visualized moderate left ventricular diastolic dysfunction normal right ventricular structure and function mild mitral regurgitation mild tricuspid regurgitation no pulmonary hypertension by TR signal obtained a device lead was visualized in the right atrium and right ventricle Continue with oxygen support - - Time Spent with Patient Total time spent is greater than 50% in coordination of care (as documented) at patient's floor/unit and/or counseling patient: Internal Medicine: Result - Labs CBC & Chem 7: 06/27/18 04:46 06/26/18 12:30 Labs: Short CBC 06/26/18 06/27/18 Range/Units 12:30 04:46 WBC 6.5 7.1 (4.3-11.1) K/mcL Hgb 7.8 L 7.9 L (11.5-15.4) g/dL Hct 28.1 L 28.8 L (35.3-44.9) % Plt Count 272 312 (140-400) K/mcL Neutrophils # 4.1 4.4 (1.6-8.9) K/mcL BMP 06/26/18 12:30 Sodium 136 Potassium 4.9 Chloride 104 Carbon Dioxide 28 BUN 21 Creatinine 0.92 Glucose 120 H Calcium 9.1 - ABG Interpretation ABG results: PT/INR, D-dimer PT 16.0 Seconds (9.4-12.1) H 06/22/18 06:34 Consult Discharge Plan - Plan Referrals: Mitul Helms MD [Non-Partnered Physician] - 04/04/19 11:00 am (1) Anemia Qualifiers: Anemia type: unspecified type Qualified Code(s): D64.9 - Anemia, unspecified
[2018-06-27] MEDS ORDERED: Iron Sucrose Complex 250 MG in 0.9 % Sodium Chloride 250 ML IVPB ONE (15:02)
[2018-06-27] MEDS ORDERED: Trolamine Salicylate/Aloe Vera 35.4 GM TUBE TP PRN (15:13)
[2018-06-27] MEDS ORDERED: Ondansetron 4 MG/2 ML VIAL IVP PRN (15:32)
--- NOTE | 2018-06-27 20:34 | Discharge Summary ---
- NOTES TO OUTPATIENT PROVIDER Notes to Outpatient Provider: Patient underwent EGD which did show NSAID induced dudenopathy with multiple small ulcers and erosions-recommending avoiding aspirin in this patient. Iron deficiency anemia secondary to blood loss patient did receive blood transfusion as well as iron infusions continue with oral iron twice a day and monitor CBC Orders not resulted at time of discharge: Pending orders 06/28/18 04:00 Iron Profile AM 0400 Date of Encounter: 06/27/18 Time of Encounter: 20:32 - Discharge Diagnosis (1) Anemia Priority: Primary Status: Acute Qualifiers: Anemia type: iron deficiency Iron deficiency anemia type: chronic blood loss Qualified Code(s): D50.0 - Iron deficiency anemia secondary to blood loss (chronic) (2) Generalized weakness Priority: Secondary Status: Acute (3) Candidiasis Priority: Secondary Status: Acute (4) Exertional dyspnea Priority: Secondary Status: Acute Hospital course: Ms. Maddox is a 72 year old female past medical history of cardiomyopathy status post ICD CHF hyperlipidemia who presented to [facility] ED with complaints of generalized weakness and malaise and dyspnea patient's family's concern for inability to care for herself. Patient states she has been feeling weak for the past month. According to the patient she has been utilizing ibuprofen chronically for the past year for arthritis. On admission she was found to have a hemoglobin of 6.3 and MCV of 65.6 patient did receive 2 units of PRBCs her fecal occult was positive GI was consulted and patient underwent EGD which did show erosive duodenopathy most likely secondary to NSAID use - as well as multiple small ulcers in erosions. GIs recommending avoiding aspirin this patient. Patient has been placed on Protonix she will follow-up with GI as an outpatient. Patient was given iron infusions as well as placed on by mouth iron twice a day hemoglobin is up to 7.9 MCV 70.6 and has been stable during hospitalization with no recurrent bleeding. During admission patient did have Candidiasis within folds of pain is much improved after receiving flucanazole we will continue with nystatin power and keeping area clean and dry Patient was evaluated by PT OT who recommended ECF placement. She has been accepted at [facility] and will be discharged to the facility 06/28/2018-if a.m. lab work and vital signs are stable. - Time Spent with Patient Total time spent providing and/or coordinating discharge services: - Discharge Medications Prescriptions: New HYDROcodone/Acet 5/325 mg [[place] 5-325 mg] 1 tab PO Q6HR PRN 1 Days #4 tablet PRN Reason: Moderate Pain Docusate [Colace] 100 mg PO DAILY capsule Ferrous Sulfate 325 mg PO BIDWM tablet Lidocaine Patch [Lidoderm 5% patch] 1 each TP DAILY adh..patch Nystatin POWDER [Nystop] 1 appl TP TID bottle Omeprazole [PriLOSEC] 20 mg PO DAILY@0630 capsule. Trolamine Salicylate/Aloe Vera [Aspercreme 10%] 1 appl TP QID PRN tube PRN Reason: See Comments Continue Atorvastatin [Lipitor] 40 mg PO HS Potassium Chloride [Klor-Con] 20 meq PO DAILY Furosemide [Lasix] 20 mg PO DAILY Ezetimibe [Zetia] 10 mg PO DAILY Citalopram [CeleXA] 20 mg PO DAILY Carvedilol [Coreg] 25 mg PO BID Discontinued Lisinopril [Zestril] 40 mg PO DAILY Aspirin [Lo-Dose Aspirin EC] 81 mg PO DAILY Home Medications: Atorvastatin [Lipitor] 40 mg PO HS 04/13/16 [History] Carvedilol [Coreg] 25 mg PO BID 04/13/16 [History] Citalopram [CeleXA] 20 mg PO DAILY 04/13/16 [History] Ezetimibe [Zetia] 10 mg PO DAILY 04/13/16 [History] Furosemide [Lasix] 20 mg PO DAILY 04/13/16 [History] Potassium Chloride [Klor-Con] 20 meq PO DAILY 04/13/16 [History] Docusate [Colace] 100 mg PO DAILY capsule 06/27/18 [Rx] Ferrous Sulfate 325 mg PO BIDWM tablet 06/27/18 [Rx] HYDROcodone/Acet 5/325 mg [[place] 5-325 mg] 1 tab PO Q6HR PRN 1 Days #4 tablet 06/27/18 [Rx] Lidocaine Patch [Lidoderm 5% patch] 1 each TP DAILY adh..patch 06/27/18 [Rx] Nystatin POWDER [Nystop] 1 appl TP TID bottle 06/27/18 [Rx] Omeprazole [PriLOSEC] 20 mg PO DAILY@0630 capsule. 06/27/18 [Rx] Trolamine Salicylate/Aloe Vera [Aspercreme 10%] 1 appl TP QID PRN tube 06/27/18 [Rx] Allergies/Adverse Reactions: Allergy/AdvReac Type Severity Reaction Status Date / Time Sulfa (Sulfonamide Allergy Hives Verified 04/13/16 11:32 Antibiotics) adhesive tape AdvReac Redness of Verified 04/13/16 11:32 Skin Date of admission: 06/23/18 16:02 Primary care physician: Rosita Boyer MD Consults: 06/21/18 22:58 Consult to Revising Clerk [CONS] Routine Reason for SW Consult: Family concern that patient is unable to care for herself and requiring assistance. 06/21/18 23:55 Consult to Gastroenterology [CONS] Routine Consulting Provider: Gastroenterology Kari Reason for Consult: Significant anemia of 6.3 in the setting of chronic NSAID use. Call Completed: No 06/22/18 08:57 Consult to Nurse Navigator [CONS] Routine Comment: CHF 06/22/18 08:59 Consult to Occupational Therapy [CONS] Routine Comment: Evaluate, develop and implement POC Reason for Consult: WEAKNESS. POSSIBLE PLACEMENT. PATIENT NEEDS INSURANCE AUTH Does patient have active BEDREST order?: No Is patient medically & hemodynamically stable?: Yes Consult to Physical Therapy [CONS] Routine Comment: Evaluate, develop and implement POC Reason for Consult: WEAKNESS. POSSIBLE PLACEMENT. PATIENT NEEDS INSURANCE AUTH Does patient have active BEDREST order?: No Is patient medically & hemodynamically stable?: Yes Discharging clinician: Leta Curtis Anticipated date of discharge: 06/28/18 - Constitutional Vitals: Temp Pulse Resp BP Pulse Ox 97.6 F 63 16 108/47 93 06/27/18 19:59 06/27/18 19:59 06/27/18 19:59 06/27/18 19:59 06/27/18 19:59 Exam: Skin: Patient does have some redness under her pannus folds however much improved Eyes: Sclera is white. There is no discharge from eyes. ENMT: Oral/pharyngeal mucosa is normal in appearance. There is no discharge from nose or ears. Respiratory: Normal breath sounds with no crackles and wheezes bilaterally. CV: Heart is regular with no gallop or murmur. GI: Abdomen is flat and soft with no palpable mass or visceromegaly. : There is no tenderness in patient's flanks bilaterally. Neuro exam: He has good strength in upper and lower extremities. He has normal eye movements. Psychiatric: He has normal affect. His thought process is appropriate to the situation. - Patient Status Disposition: Transfer SNF Condition: Undetermined Functional capacity at discharge: uses cane/walker Overall status at discharge: patient is back to baseline - Discharge Instructions Follow Up With: Mitul Helms MD [Non-Partnered Physician] - 06/29/18 11:00 am - Diet and Activity Activity: as per physical therapy Diet: advance to your usual diet
--- NOTE | 2018-06-27 20:51 | Physician Discharge Referral ---
ExtendedCare Referral Info Transfer To: [place] Provider in Charge: Hussein Provider in Charge after Transfer: PCP Institutional Level of Care: Skilled - Diagnosis (1) Anemia Priority: Primary Status: Acute (2) Generalized weakness Priority: Secondary Status: Acute (3) Candidiasis Priority: Secondary Status: Acute (4) Exertional dyspnea Priority: Secondary Status: Acute - Transfer Medications Prescriptions: HYDROcodone/Acet 5/325 mg [[place] 5-325 mg] 1 tab PO Q6HR PRN 1 Days #4 tablet PRN Reason: Moderate Pain Home Medications: Atorvastatin [Lipitor] 40 mg PO HS 04/13/16 [History] Carvedilol [Coreg] 25 mg PO BID 04/13/16 [History] Citalopram [CeleXA] 20 mg PO DAILY 04/13/16 [History] Ezetimibe [Zetia] 10 mg PO DAILY 04/13/16 [History] Furosemide [Lasix] 20 mg PO DAILY 04/13/16 [History] Potassium Chloride [Klor-Con] 20 meq PO DAILY 04/13/16 [History] Docusate [Colace] 100 mg PO DAILY capsule 06/27/18 [Rx] Ferrous Sulfate 325 mg PO BIDWM tablet 06/27/18 [Rx] HYDROcodone/Acet 5/325 mg [[place] 5-325 mg] 1 tab PO Q6HR PRN 1 Days #4 tablet 06/27/18 [Rx] Lidocaine Patch [Lidoderm 5% patch] 1 each TP DAILY adh..patch 06/27/18 [Rx] Nystatin POWDER [Nystop] 1 appl TP TID bottle 06/27/18 [Rx] Omeprazole [PriLOSEC] 20 mg PO DAILY@0630 capsule.dr 06/27/18 [Rx] Trolamine Salicylate/Aloe Vera [Aspercreme 10%] 1 appl TP QID PRN tube 06/27/18 [Rx] Allergies/Adverse Reactions: Allergy/AdvReac Type Severity Reaction Status Date / Time Sulfa (Sulfonamide Allergy Hives Verified 04/13/16 11:32 Antibiotics) adhesive tape AdvReac Redness of Verified 04/13/16 11:32 Skin - Respiratory Orders Oxygen / L per min Smoking Cessation: Smoking cessation has been advised. For more information, call the [place] Tobacco Quit Line at 5-436-MCKF-NOW. - Advance Directives Code Status: DNR-Arrest/Don't Intubate - Treatments List/Other: Keep areas under skin folds clean and dry 2 times a day - Diet Orders Cardiac CERTIFICATION: I certify that the transfer of the above named patient to an Extended Care Facility is necessary for the continuing treatment of the diagnosis listed. The above information is true and accurate reflection of patient's current condition. Confidential - Redisclosure prohibited without a patient's written consent.
[2018-06-28] MEDS: *HR* HYDROcodone/Acet 5/325 mg TABLET PO PRN (03:05)
[2018-06-28 04:35] LABS: Immature Granulocytes % 1.5 % (0-4); Mean Platelet Volume 8.4 fL (9.4-12.4); Nucleated Red Blood Cells 0.3 /100 WBC (0)
[2018-06-28 04:37] LABS: Basophils # 0.1 K/mcL (0.0-0.2); Basophils % 0.8 %; Eosinophils # 0.4 K/mcL (0.0-0.6); Eosinophils % 5.6 %; Hematocrit 28.7 % (35.3-44.9); Hemoglobin 7.8 g/dL (11.5-15.4); Lymphocytes # 1.5 K/mcL (0.6-4.6); Mean Corpuscular HGB Conc 27.2 g/dL (31.6-35.5); Mean Corpuscular Hemoglobin 19.3 pg (28.0-33.3); Monocytes # 0.6 K/mcL (0.0-1.3); Monocytes % 7.8 %; Neutrophils # 4.7 K/mcL (1.6-8.9); Platelet Count 297 K/mcL (140-400); Red Blood Count 4.04 M/mcL (3.82-4.97); Red Cell Distribution Width 26.2 % (11.5-14.5); Segmented Neutrophils % 64.3 %
[2018-06-28 04:52] LABS: Anisocytosis 2+ (Not Present)
[2018-06-28 04:53] LABS: Hypochromasia Present (Not Present); Macrocytosis Present (Not Present); Microcytosis Present (Not Present); Platelet Estimate Normal (Normal); Polychromasia 1+ (Not Present)
[2018-06-28 04:56] LABS: BUN/Creatinine Ratio 22 (6-26); Blood Urea Nitrogen 22 mg/dL (8-23); Carbon Dioxide 26 mEq/L (23-29); Chloride 105 mEq/L (98-107); Glucose 134 mg/dL (70-105); Osmolality,Calculated 289 (280-300); Potassium 4.5 mEq/L (3.5-5.1); Sodium 137 mEq/L (136-145); eGFR For Non-African Americans 53 (> 60)
[2018-06-28 04:57] LABS: % Iron Saturation 50 % (15-50); Iron 183 mcg/dL (50-170); Transferrin 259 mg/dL (203-362)
[2018-06-28] MEDS: ALPRAZolam 0.25 MG TABLET PO PRN (06:12)
[2018-06-28] MEDS: Lisinopril 20 MG TABLET PO SCH (08:54)
[2018-06-28] MEDS: Furosemide 20 MG TABLET PO SCH (08:54)
[2018-06-28] MEDS ORDERED: Ascorbic Acid 500 MG TABLET PO SCH (09:00)
[2018-06-28] MEDS ORDERED: Vitamin B Complex/Vit C/Vit E 1 EACH TABLET PO SCH (09:00)
[2018-06-28 09:15] LABS: Immature Reticulocyte % 50.1 % (11.0-38.0); Retculocyte # 0.12 M/mcL (0.05-0.10); Reticulocyte % 3.1 % (1.6-2.8)
[2018-06-28 09:17] LABS: Lactate Dehydrogenase 143 Units/L (140-271)
[2018-06-28] MEDS: Nystatin POWDER 30 GM BOTTLE TP SCH (09:27)
[2018-06-28] MEDS: (Ezetimibe [Zetia] 10 MG) PO SCH (09:27)
[2018-06-28 09:30] LABS: Thyroid Stimulating Hormone 4.619 mcIU/mL (0.340-5.600)
[2018-06-28 11:55] VITALS: BP 93/55
== END 2018-06-28 15:12 | DRG 812 ==
LOC: EMEROOARM 15:59 → 3BNU 15:59
PROVIDERS: ADMIT Internal Medicine; ATTEND Internal Medicine

== ENCOUNTER 2020-11-28 16:52 | Inpatient (IN) ==
[2020-11-28] MEDS ORDERED: Ipratropium/Albuterol Neb 3 ML IH ONE (17:49)
[2020-11-28] MEDS ORDERED: Furosemide 40 MG/4 ML VIAL IVP ONE (17:49)
[2020-11-28] MEDS ORDERED: methylPREDNISolone 125 MG/2 ML VIAL IVP ONE (17:49)
[2020-11-28 18:15] LABS: Basophils % 0.5 %; Eosinophils # 0.1 K/mcL (0.0-0.6); Eosinophils % 0.9 %; Hematocrit 43.7 % (35.3-44.9); Hemoglobin 12.8 g/dL (11.5-15.4); Immature Granulocytes % 0.7 % (0-4); Lymphocytes % 11.2 %; Mean Corpuscular HGB Conc 29.3 g/dL (31.6-35.5); Mean Corpuscular Hemoglobin 25.3 pg (28.0-33.3); Mean Corpuscular Volume 86.4 fL (83.0-100.0); Monocytes # 0.7 K/mcL (0.0-1.3); Monocytes % 7.7 %; Neutrophils # 6.8 K/mcL (1.6-8.9); Platelet Count 191 K/mcL (140-400); Red Blood Count 5.06 M/mcL (3.82-4.97); Red Cell Distribution Width 17.2 % (11.5-14.5); White Blood Count 8.6 K/mcL (4.3-11.1)
[2020-11-28 18:26] LABS: INR 1.6; Prothrombin Time 18.1 Seconds (9.4-12.1)
[2020-11-28 18:29] LABS: Activated Partial Thrombo Time 27.6 Seconds (26.0-36.0)
[2020-11-28 18:35] LABS: BUN/Creatinine Ratio 16 (6-26); Blood Urea Nitrogen 13 mg/dL (8-23); Carbon Dioxide 28 mEq/L (23-29); Chloride 109 mEq/L (98-107); Glucose 125 mg/dL (70-105); Osmolality,Calculated 300 (280-300); Sodium 144 mEq/L (136-145); Troponin I < 0.03 ng/mL (< 0.04); eGFR For African Americans > 60 (> 60); eGFR For Non-African Americans > 60 (> 60)
[2020-11-28] MEDS ORDERED: Ondansetron 4 MG/2 ML VIAL IVP PRN (20:03)
[2020-11-28] MEDS ORDERED: Naloxone 0.4 MG/ML INJ IVP PRN (20:03)
[2020-11-28] MEDS ORDERED: Perflutren Lipid Microsphere 1.3 ML in 0.9 % Sodium Chloride 8.7 ML IVP PRN (20:22)
[2020-11-28 20:38] LABS: Adenovirus Not Detected (Not Detect); Bordetella Pertussis Not Detected (Not Detect); Chlamydophila pneumoniae Not Detected (Not Detect); Coronavirus 229E Not Detected (Not Detect); Coronavirus HKU1 Not Detected (Not Detect); Coronavirus NL63 Not Detected (Not Detect); Coronavirus OC43 Not Detected (Not Detect); Human Metapneumovirus Not Detected (Not Detect); Human Rhinovirus/Enterovirus Not Detected (Not Detect); Influenza A Subtype 2009 H1 Not Detected (Not Detect); Influenza B Not Detected (Not Detect); Mycoplasma pneumoniae Not Detected (Not Detect); Parainfluenza Virus 1 Not Detected (Not Detect); Parainfluenza Virus 2 Not Detected (Not Detect); Parainfluenza Virus 3 Not Detected (Not Detect); Parainfluenza Virus 4 Not Detected (Not Detect); Respiratory Syncytial Virus DETECTED (Not Detect); SARS-CoV-2 Not Detected (Not Detect)
[2020-11-28] MEDS ORDERED: *HR* Heparin 5,000 UNIT/ML VIAL IVP ONE (22:51)
[2020-11-28] MEDS ORDERED: *HR* Heparin 5,000 UNIT/ML VIAL IVP PRN ×2 (22:51)
[2020-11-28] MEDS: Heparin 25,000UNIT/250ML 1/2NS 25,000 UNIT/250 ML IV.SOLN IVC SCH (23:26)
[2020-11-28] MEDS: Nystatin POWDER 30 GM BOTTLE TP SCH (23:27)
[2020-11-28] MEDS: Ipratropium/Albuterol Neb 3 ML IH SCH (23:36)
[2020-11-29] MEDS ORDERED: MethylPREDNISolone 40 MG/ML VIAL IVP SCH
[2020-11-29 02:04] LABS: Hematocrit 41.9 % (35.3-44.9); Hemoglobin 12.3 g/dL (11.5-15.4); Mean Corpuscular HGB Conc 29.4 g/dL (31.6-35.5); Mean Corpuscular Hemoglobin 25.1 pg (28.0-33.3); Mean Corpuscular Volume 85.5 fL (83.0-100.0); Mean Platelet Volume 8.8 fL (9.4-12.4); Platelet Count 175 K/mcL (140-400); Red Cell Distribution Width 17.1 % (11.5-14.5)
[2020-11-29 02:12] LABS: Prothrombin Time 22.2 Seconds (9.4-12.1)
[2020-11-29 02:22] LABS: BUN/Creatinine Ratio 16 (6-26); Blood Urea Nitrogen 12 mg/dL (8-23); Calcium 8.7 mg/dL (8.6-10.3); Carbon Dioxide 27 mEq/L (23-29); Chloride 106 mEq/L (98-107); Glucose 187 mg/dL (70-105); Osmolality,Calculated 299 (280-300); Potassium 4.1 mEq/L (3.5-5.1); Sodium 142 mEq/L (136-145); eGFR For African Americans > 60 (> 60); eGFR For Non-African Americans > 60 (> 60)
[2020-11-29] MEDS: Ipratropium/Albuterol Neb 3 ML IH SCH ×5 (04:50→20:49)
[2020-11-29] MEDS: Nystatin POWDER 30 GM BOTTLE TP SCH ×3 (10:25→21:09)
[2020-11-29 11:04] LABS: Alanine Aminotransferase 4 Units/L (7-52); Albumin 3.4 g/dL (3.5-5.7); Albumin/Globulin Ratio 1.1 (1.1-2.2); Alkaline Phosphatase 47 Units/L (34-104); Aspartate Amino Transferase 15 Units/L (13-39); Bilirubin,Direct 0.2 mg/dL (0.0-0.2); Bilirubin,Indirect 0.6 mg/dL (0.0-1.0); Bilirubin,Total 0.8 mg/dL (0.3-1.0); Globulin 3.1 g/dL (2.4-3.5); Total Protein 6.5 g/dL (6.4-8.9)
[2020-11-29] MEDS ORDERED: Trolamine Salicylate/Aloe Vera 85 APPL/85 GM TUBE TP PRN (11:28)
[2020-11-29] MEDS: Furosemide 20 MG/2 ML VIAL IVP SCH (13:13)
[2020-11-29] MEDS: carvediloL 25 MG TABLET PO SCH ×2 (13:13→17:18)
[2020-11-29] MEDS: Heparin 25,000UNIT/250ML 1/2NS 25,000 UNIT/250 ML IV.SOLN IVC SCH (13:35)
[2020-11-30] MEDS: Ipratropium/Albuterol Neb 3 ML IH SCH ×6 (00:24→20:34)
[2020-11-30] MEDS: Acetaminophen 325 MG TABLET PO PRN (00:40)
[2020-11-30 03:04] LABS: Basophils % 0.1 %; Hematocrit 39.4 % (35.3-44.9); Hemoglobin 11.7 g/dL (11.5-15.4); Immature Granulocytes % 0.7 % (0-4); Lymphocytes % 6.9 %; Mean Corpuscular HGB Conc 29.7 g/dL (31.6-35.5); Mean Corpuscular Hemoglobin 25.4 pg (28.0-33.3); Mean Corpuscular Volume 85.5 fL (83.0-100.0); Monocytes # 0.6 K/mcL (0.0-1.3); Monocytes % 5.6 %; Neutrophils # 9.4 K/mcL (1.6-8.9); Platelet Count 184 K/mcL (140-400); Red Blood Count 4.61 M/mcL (3.82-4.97); Red Cell Distribution Width 16.9 % (11.5-14.5); Segmented Neutrophils % 86.7 %
[2020-11-30 03:22] LABS: BUN/Creatinine Ratio 19 (6-26); Blood Urea Nitrogen 16 mg/dL (8-23); Calcium 8.9 mg/dL (8.6-10.3); Carbon Dioxide 30 mEq/L (23-29); Chloride 106 mEq/L (98-107); Glucose 180 mg/dL (70-105); Lymphocytes # 0.8 K/mcL (0.6-4.6); Osmolality,Calculated 300 (280-300); Potassium 4.2 mEq/L (3.5-5.1); Sodium 142 mEq/L (136-145); White Blood Count 10.8 K/mcL (4.3-11.1); eGFR For African Americans > 60 (> 60); eGFR For Non-African Americans > 60 (> 60)
[2020-11-30] MEDS ORDERED: methylPREDNISolone 125 MG/2 ML VIAL IVP ONE (06:55)
[2020-11-30] MEDS: Heparin 25,000UNIT/250ML 1/2NS 25,000 UNIT/250 ML IV.SOLN IVC SCH ×2 (07:51→08:13)
[2020-11-30] MEDS: predniSONE 20 MG TABLET PO SCH (08:17)
[2020-11-30] MEDS: Furosemide 20 MG/2 ML VIAL IVP SCH (08:17)
[2020-11-30] MEDS: carvediloL 25 MG TABLET PO SCH ×2 (08:18→18:06)
[2020-11-30] MEDS: Nystatin POWDER 30 GM BOTTLE TP SCH ×3 (08:18→20:18)
[2020-11-30] MEDS ORDERED: Furosemide 20 MG TABLET PO SCH (09:00)
[2020-11-30] MEDS ORDERED: (Ezetimibe [Zetia] 10 MG Tablet) PO SCH (09:00)
[2020-11-30 10:07] LABS: Heparin anti-factor XA UFH 0.35 IU/mL (0.30-0.70)
[2020-11-30 10:08] LABS: INR 1.5; Prothrombin Time 16.7 Seconds (9.4-12.1)
[2020-12-01] MEDS: Ipratropium/Albuterol Neb 3 ML IH SCH ×7 (00:24→23:19)
[2020-12-01 05:39] LABS: Basophils % 0.1 %
[2020-12-01 05:41] LABS: Eosinophils % 0.1 %; Hematocrit 39.8 % (35.3-44.9); Hemoglobin 11.4 g/dL (11.5-15.4); Immature Granulocytes % 0.9 % (0-4); Lymphocytes % 9.8 %; Mean Corpuscular HGB Conc 28.6 g/dL (31.6-35.5); Mean Corpuscular Hemoglobin 24.8 pg (28.0-33.3); Mean Corpuscular Volume 86.7 fL (83.0-100.0); Mean Platelet Volume 8.6 fL (9.4-12.4); Monocytes # 0.7 K/mcL (0.0-1.3); Neutrophils # 8.5 K/mcL (1.6-8.9); Platelet Count 177 K/mcL (140-400); Red Blood Count 4.59 M/mcL (3.82-4.97); Red Cell Distribution Width 16.8 % (11.5-14.5); Segmented Neutrophils % 82.1 %; White Blood Count 10.4 K/mcL (4.3-11.1)
[2020-12-01 06:06] LABS: BUN/Creatinine Ratio 26 (6-26); Blood Urea Nitrogen 20 mg/dL (8-23); Calcium 9.4 mg/dL (8.6-10.3); Carbon Dioxide 33 mEq/L (23-29); Chloride 104 mEq/L (98-107); Glucose 122 mg/dL (70-105); Osmolality,Calculated 300 (280-300); Sodium 143 mEq/L (136-145); eGFR For African Americans > 60 (> 60); eGFR For Non-African Americans > 60 (> 60)
[2020-12-01] MEDS: Heparin 25,000UNIT/250ML 1/2NS 25,000 UNIT/250 ML IV.SOLN IVC SCH ×2 (08:46→08:48)
[2020-12-01] MEDS: Furosemide 20 MG/2 ML VIAL IVP SCH (08:49)
[2020-12-01] MEDS: predniSONE 20 MG TABLET PO SCH (08:49)
[2020-12-01] MEDS: Nystatin POWDER 30 GM BOTTLE TP SCH ×3 (08:50→21:34)
[2020-12-01] MEDS: carvediloL 25 MG TABLET PO SCH ×2 (08:50→16:24)
[2020-12-01 14:19] LABS: ABG Base Excess 7 mEq/L (-2 to 3); ABG HCO3 35 mEq/L (21-27); ABG Oxygen Saturation 90 % (95-98); ABG PCO2 69 mmHg (35-45); ABG PH 7.32 pH Units (7.32-7.45); ABG PO2 66 mmHg (85-104); ABG TCO2 37 mEq/L (20-26)
[2020-12-01 15:42] LABS: Bilirubin,Urine Negative (Negative); Blood,Urine Large (Negative); Clarity,Urine Turbid (Clear); Color,Urine Light-Orange (Yellow); Glucose,Urine (UA) Normal (Normal); Ketones,Urine Negative (Negative); Leukocyte Esterase,Urine Large (Negative); Nitrite,Urine Negative (Negative); Protein,Urine 50 mg/dL (Neg-Trace); Urobilinogen,Urine Normal (Normal)
[2020-12-01 15:52] LABS: RBC,Urine TNTC per hpf (0-3); Squamous Epithelial Cell,Urine Few per hpf (None-Few)
[2020-12-01 15:53] LABS: WBC,Urine 50-100 per hpf (0-3)
[2020-12-01 15:54] LABS: Bacteria,Urine Moderate per hpf (None-Few)
[2020-12-01] MEDS: cefTRIAXone 1,000 MG in Water for inj. (sterile) 10 ML IVP SCH (16:24)
[2020-12-02] MEDS: Heparin 25,000UNIT/250ML 1/2NS 25,000 UNIT/250 ML IV.SOLN IVC SCH ×2 (03:25→05:52)
[2020-12-02 03:52] LABS: Hemoglobin 11.6 g/dL (11.5-15.4)
[2020-12-02 03:54] LABS: Basophils % 0.1 %; Hematocrit 39.4 % (35.3-44.9); Immature Granulocytes % 1.9 % (0-4); Lymphocytes # 0.9 K/mcL (0.6-4.6); Lymphocytes % 10.5 %; Mean Corpuscular HGB Conc 29.4 g/dL (31.6-35.5); Mean Corpuscular Hemoglobin 25.6 pg (28.0-33.3); Mean Corpuscular Volume 86.8 fL (83.0-100.0); Mean Platelet Volume 8.6 fL (9.4-12.4); Monocytes # 0.5 K/mcL (0.0-1.3); Monocytes % 5.8 %; Neutrophils # 6.6 K/mcL (1.6-8.9); Platelet Count 168 K/mcL (140-400); Red Blood Count 4.54 M/mcL (3.82-4.97); Red Cell Distribution Width 16.7 % (11.5-14.5); Segmented Neutrophils % 81.7 %; White Blood Count 8.1 K/mcL (4.3-11.1)
[2020-12-02] MEDS: Ipratropium/Albuterol Neb 3 ML IH SCH ×6 (04:05→23:06)
[2020-12-02 04:08] LABS: BUN/Creatinine Ratio 28 (6-26); Blood Urea Nitrogen 21 mg/dL (8-23); Carbon Dioxide 37 mEq/L (23-29); Chloride 102 mEq/L (98-107); Glucose 130 mg/dL (70-105); Osmolality,Calculated 303 (280-300); Potassium 4.2 mEq/L (3.5-5.1); Sodium 144 mEq/L (136-145); eGFR For African Americans > 60 (> 60); eGFR For Non-African Americans > 60 (> 60)
[2020-12-02 04:13] LABS: Calcium 9.5 mg/dL (8.6-10.3)
[2020-12-02 04:46] LABS: Hypochromasia Present (Not Present); Platelet Estimate Normal (Normal)
[2020-12-02 04:47] LABS: Anisocytosis 1+ (Not Present)
[2020-12-02] MEDS: predniSONE 20 MG TABLET PO SCH (08:42)
[2020-12-02] MEDS: carvediloL 25 MG TABLET PO SCH ×2 (08:43→17:35)
[2020-12-02] MEDS: Nystatin POWDER 30 GM BOTTLE TP SCH ×3 (08:43→20:49)
[2020-12-02] MEDS: Furosemide 20 MG/2 ML VIAL IVP SCH (08:43)
[2020-12-02] MEDS: Apixaban 5 MG TABLET PO SCH ×2 (09:59→20:48)
[2020-12-02] MEDS ORDERED: QUEtiapine Fumarate 25 MG TABLET PO PRN (12:55)
[2020-12-02] MEDS: cefTRIAXone 1,000 MG in Water for inj. (sterile) 10 ML IVP SCH (17:37)
[2020-12-02] MEDS ORDERED: CefTRIAXone 1,000 MG VIAL ONE (17:41)
[2020-12-03] MEDS: Ipratropium/Albuterol Neb 3 ML IH SCH ×6 (04:25→23:12)
[2020-12-03] MEDS ORDERED: QUEtiapine Fumarate 25 MG TABLET PO PRN (07:30)
[2020-12-03 08:08] LABS: Basophils % 0.4 %; Hematocrit 41.3 % (35.3-44.9); Hemoglobin 11.7 g/dL (11.5-15.4); Immature Granulocytes % 1.4 % (0-4); Lymphocytes # 0.8 K/mcL (0.6-4.6); Lymphocytes % 10.3 %; Mean Corpuscular HGB Conc 28.3 g/dL (31.6-35.5); Mean Corpuscular Hemoglobin 24.9 pg (28.0-33.3); Mean Corpuscular Volume 88.1 fL (83.0-100.0); Mean Platelet Volume 8.9 fL (9.4-12.4); Monocytes # 0.5 K/mcL (0.0-1.3); Monocytes % 5.9 %; Platelet Count 147 K/mcL (140-400); Red Blood Count 4.69 M/mcL (3.82-4.97); Red Cell Distribution Width 16.6 % (11.5-14.5)
[2020-12-03 08:09] LABS: Neutrophils # 6.6 K/mcL (1.6-8.9)
[2020-12-03 08:12] LABS: BUN/Creatinine Ratio 33 (6-26); Blood Urea Nitrogen 22 mg/dL (8-23); Calcium 9.7 mg/dL (8.6-10.3); Carbon Dioxide 38 mEq/L (23-29); Chloride 101 mEq/L (98-107); Glucose 113 mg/dL (70-105); Osmolality,Calculated 302 (280-300); Potassium 4.2 mEq/L (3.5-5.1); Sodium 144 mEq/L (136-145); eGFR For African Americans > 60 (> 60); eGFR For Non-African Americans > 60 (> 60)
[2020-12-03 09:15] LABS: Anisocytosis 1+ (Not Present); Platelet Estimate Normal (Normal)
[2020-12-03] MEDS: carvediloL 25 MG TABLET PO SCH ×2 (10:10→16:42)
[2020-12-03] MEDS: Furosemide 20 MG/2 ML VIAL IVP SCH (10:10)
[2020-12-03] MEDS: Apixaban 5 MG TABLET PO SCH (10:10)
[2020-12-03] MEDS: predniSONE 20 MG TABLET PO SCH (10:10)
[2020-12-03] MEDS: Nystatin POWDER 30 GM BOTTLE TP SCH ×3 (10:15→21:34)
[2020-12-03] MEDS: Acetaminophen 325 MG TABLET PO PRN ×2 (12:54→22:02)
[2020-12-03 15:39] LABS: INR 1.7; Prothrombin Time 19.6 Seconds (9.4-12.1)
[2020-12-03] MEDS: Loratadine 10 MG TABLET PO SCH (16:43)
[2020-12-03] MEDS: Amoxicillin 500 MG CAPSULE PO SCH (16:49)
[2020-12-03] MEDS ORDERED: traZODone 50 MG TABLET PO PRN (17:28)
[2020-12-03] MEDS ORDERED: *HR* Warfarin 4 MG TABLET PO ONE (18:00)
[2020-12-03] MEDS ORDERED: Warfarin perPT PO PRN (18:00)
[2020-12-03] MEDS ORDERED: NON-FORMULARY MEDICATION 1 EACH EACH (Atorvastatin Calcium [Lipitor] 20 MG Tablet) PO SCH (21:00)
[2020-12-04] MEDS: Amoxicillin 500 MG CAPSULE PO SCH ×4 (00:02→23:36)
[2020-12-04] MEDS: Ipratropium/Albuterol Neb 3 ML IH SCH ×7 (03:52→23:43)
[2020-12-04 05:37] LABS: Basophils % 0.3 %; Hematocrit 39.9 % (35.3-44.9); Hemoglobin 11.6 g/dL (11.5-15.4); Immature Granulocytes % 1.8 % (0-4); Lymphocytes # 0.6 K/mcL (0.6-4.6); Lymphocytes % 6.2 %; Mean Corpuscular HGB Conc 29.1 g/dL (31.6-35.5); Mean Corpuscular Hemoglobin 25.2 pg (28.0-33.3); Mean Corpuscular Volume 86.7 fL (83.0-100.0); Mean Platelet Volume 9.6 fL (9.4-12.4); Monocytes # 0.6 K/mcL (0.0-1.3); Monocytes % 6.2 %; Neutrophils # 8.2 K/mcL (1.6-8.9); Platelet Count 163 K/mcL (140-400); Red Cell Distribution Width 16.2 % (11.5-14.5); Segmented Neutrophils % 85.5 %; White Blood Count 9.5 K/mcL (4.3-11.1)
[2020-12-04 05:42] LABS: INR 1.6; Prothrombin Time 17.8 Seconds (9.4-12.1)
[2020-12-04 05:59] LABS: BUN/Creatinine Ratio 44 (6-26); Blood Urea Nitrogen 27 mg/dL (8-23); Calcium 9.3 mg/dL (8.6-10.3); Carbon Dioxide 41 mEq/L (23-29); Chloride 98 mEq/L (98-107); Glucose 159 mg/dL (70-105); Osmolality,Calculated 300 (280-300); Potassium 4.4 mEq/L (3.5-5.1); Sodium 141 mEq/L (136-145); eGFR For African Americans > 60 (> 60); eGFR For Non-African Americans > 60 (> 60)
[2020-12-04] MEDS: predniSONE 20 MG TABLET PO SCH (09:40)
[2020-12-04] MEDS: Loratadine 10 MG TABLET PO SCH (09:40)
[2020-12-04] MEDS: carvediloL 25 MG TABLET PO SCH ×2 (09:41→15:14)
[2020-12-04] MEDS: Furosemide 20 MG/2 ML VIAL IVP SCH (09:41)
[2020-12-04] MEDS: Nystatin POWDER 30 GM BOTTLE TP SCH ×3 (09:48→20:04)
[2020-12-04] MEDS ORDERED: Isovue-370 500 ML BOTTLE IVP ONE (11:44)
[2020-12-04] MEDS ORDERED: *HR* Warfarin 4 MG TABLET PO ONE (18:00)
[2020-12-05] MEDS: Ipratropium/Albuterol Neb 3 ML IH SCH ×6 (04:52→23:28)
[2020-12-05 04:55] LABS: ABG Base Excess 13 mEq/L (-2 to 3); ABG HCO3 42 mEq/L (21-27); ABG Oxygen Saturation 81 % (95-98); ABG PCO2 77 mmHg (35-45); ABG PH 7.34 pH Units (7.32-7.45); ABG PO2 51 mmHg (85-104); ABG TCO2 44 mEq/L (20-26)
[2020-12-05] MEDS: carvediloL 25 MG TABLET PO SCH ×2 (08:01→18:12)
[2020-12-05] MEDS: Furosemide 20 MG/2 ML VIAL IVP SCH (08:01)
[2020-12-05] MEDS: Amoxicillin 500 MG CAPSULE PO SCH ×3 (08:01→23:37)
[2020-12-05] MEDS: Loratadine 10 MG TABLET PO SCH (08:02)
[2020-12-05] MEDS: predniSONE 20 MG TABLET PO SCH (08:03)
[2020-12-05] MEDS: Nystatin POWDER 30 GM BOTTLE TP SCH ×3 (08:04→20:07)
[2020-12-05 12:09] LABS: Hematocrit 40.8 % (35.3-44.9); Mean Corpuscular HGB Conc 29.4 g/dL (31.6-35.5); Mean Corpuscular Hemoglobin 25.5 pg (28.0-33.3); Mean Corpuscular Volume 86.8 fL (83.0-100.0); Mean Platelet Volume 9.1 fL (9.4-12.4); Platelet Count 153 K/mcL (140-400); Red Cell Distribution Width 16.4 % (11.5-14.5)
[2020-12-05 12:14] LABS: White Blood Count 14.4 K/mcL (4.3-11.1)
[2020-12-05 12:20] LABS: INR 1.3; Prothrombin Time 14.6 Seconds (9.4-12.1)
[2020-12-05 12:53] LABS: BUN/Creatinine Ratio 45 (6-26); Blood Urea Nitrogen 24 mg/dL (8-23); Calcium 9.4 mg/dL (8.6-10.3); Carbon Dioxide 40 mEq/L (23-29); Chloride 96 mEq/L (98-107); Glucose 189 mg/dL (70-105); Osmolality,Calculated 303 (280-300); Potassium 4.2 mEq/L (3.5-5.1); Sodium 142 mEq/L (136-145); eGFR For African Americans > 60 (> 60); eGFR For Non-African Americans > 60 (> 60)
[2020-12-05] MEDS ORDERED: *HR* Warfarin 5 MG TABLET PO ONE (18:00)
[2020-12-06] MEDS: Ipratropium/Albuterol Neb 3 ML IH SCH ×5 (03:51→20:10)
[2020-12-06] MEDS: Loratadine 10 MG TABLET PO SCH (09:39)
[2020-12-06] MEDS: Amoxicillin 500 MG CAPSULE PO SCH ×2 (09:39→16:47)
[2020-12-06] MEDS: Nystatin POWDER 30 GM BOTTLE TP SCH ×3 (09:40→22:11)
[2020-12-06] MEDS: Furosemide 20 MG/2 ML VIAL IVP SCH (09:40)
[2020-12-06] MEDS: carvediloL 25 MG TABLET PO SCH ×2 (09:40→16:47)
[2020-12-06 11:55] LABS: Hematocrit 42.5 % (35.3-44.9); Hemoglobin 12.5 g/dL (11.5-15.4); Mean Corpuscular HGB Conc 29.4 g/dL (31.6-35.5); Mean Corpuscular Hemoglobin 25.2 pg (28.0-33.3); Mean Corpuscular Volume 85.7 fL (83.0-100.0); Mean Platelet Volume 9.4 fL (9.4-12.4); Platelet Count 182 K/mcL (140-400); Red Blood Count 4.96 M/mcL (3.82-4.97); Red Cell Distribution Width 16.9 % (11.5-14.5); White Blood Count 15.8 K/mcL (4.3-11.1)
[2020-12-06 12:04] LABS: INR 1.4; Prothrombin Time 15.5 Seconds (9.4-12.1)
[2020-12-06 12:17] LABS: BUN/Creatinine Ratio 34 (6-26); Blood Urea Nitrogen 24 mg/dL (8-23); Calcium 9.7 mg/dL (8.6-10.3); Carbon Dioxide 38 mEq/L (23-29); Chloride 95 mEq/L (98-107); Glucose 151 mg/dL (70-105); Osmolality,Calculated 293 (280-300); Potassium 4.6 mEq/L (3.5-5.1); Sodium 138 mEq/L (136-145); eGFR For African Americans > 60 (> 60); eGFR For Non-African Americans > 60 (> 60)
[2020-12-06] MEDS ORDERED: *HR* Warfarin 5 MG TABLET PO ONE (18:00)
[2020-12-07] MEDS: Ipratropium/Albuterol Neb 3 ML IH SCH ×7 (00:28→23:25)
[2020-12-07] MEDS: Amoxicillin 500 MG CAPSULE PO SCH ×4 (00:35→23:58)
[2020-12-07] MEDS: Loratadine 10 MG TABLET PO SCH (09:07)
[2020-12-07] MEDS: Furosemide 20 MG/2 ML VIAL IVP SCH (09:07)
[2020-12-07] MEDS: carvediloL 25 MG TABLET PO SCH ×2 (09:07→17:23)
[2020-12-07] MEDS ORDERED: Furosemide 20 MG/2 ML VIAL IVP ONE (09:27)
[2020-12-07] MEDS: Acetaminophen 325 MG TABLET PO PRN (10:52)
[2020-12-07] MEDS: Nystatin POWDER 30 GM BOTTLE TP SCH ×3 (10:59→20:31)
[2020-12-07 12:43] LABS: Hematocrit 41.9 % (35.3-44.9); Hemoglobin 12.4 g/dL (11.5-15.4); Mean Corpuscular HGB Conc 29.6 g/dL (31.6-35.5); Mean Corpuscular Hemoglobin 25.1 pg (28.0-33.3); Mean Corpuscular Volume 84.8 fL (83.0-100.0); Mean Platelet Volume 9.2 fL (9.4-12.4); Platelet Count 180 K/mcL (140-400); Red Blood Count 4.94 M/mcL (3.82-4.97); Red Cell Distribution Width 17.2 % (11.5-14.5); White Blood Count 12.4 K/mcL (4.3-11.1)
[2020-12-07 12:50] LABS: INR 1.7; Prothrombin Time 19.4 Seconds (9.4-12.1)
[2020-12-07 13:02] LABS: BUN/Creatinine Ratio 42 (6-26); Blood Urea Nitrogen 28 mg/dL (8-23); Calcium 9.3 mg/dL (8.6-10.3); Carbon Dioxide 38 mEq/L (23-29); Chloride 97 mEq/L (98-107); Glucose 163 mg/dL (70-105); Magnesium 1.8 mg/dL (1.6-2.6); Osmolality,Calculated 299 (280-300); Potassium 3.8 mEq/L (3.5-5.1); Sodium 140 mEq/L (136-145); eGFR For African Americans > 60 (> 60); eGFR For Non-African Americans > 60 (> 60)
[2020-12-07] MEDS: Melatonin 3 MG TABLET PO PRN (23:53)
[2020-12-08] MEDS: Ipratropium/Albuterol Neb 3 ML IH SCH ×6 (04:30→23:32)
[2020-12-08] MEDS: Furosemide 20 MG/2 ML VIAL IVP SCH (08:29)
[2020-12-08] MEDS: Amoxicillin 500 MG CAPSULE PO SCH ×3 (08:29→23:59)
[2020-12-08] MEDS: carvediloL 25 MG TABLET PO SCH ×2 (08:30→16:17)
[2020-12-08] MEDS: Loratadine 10 MG TABLET PO SCH (08:30)
[2020-12-08] MEDS: Nystatin POWDER 30 GM BOTTLE TP SCH ×3 (08:30→21:14)
[2020-12-08] MEDS: Acetaminophen 325 MG TABLET PO PRN ×2 (11:41→20:21)
[2020-12-08 14:00] LABS: Hematocrit 41.7 % (35.3-44.9); Hemoglobin 12.3 g/dL (11.5-15.4); Mean Corpuscular HGB Conc 29.5 g/dL (31.6-35.5); Mean Corpuscular Hemoglobin 25.1 pg (28.0-33.3); Mean Corpuscular Volume 85.1 fL (83.0-100.0); Mean Platelet Volume 9.3 fL (9.4-12.4); Platelet Count 174 K/mcL (140-400); Red Cell Distribution Width 17.2 % (11.5-14.5)
[2020-12-08 14:09] LABS: INR 1.7; Prothrombin Time 19.9 Seconds (9.4-12.1)
[2020-12-08 15:43] LABS: BUN/Creatinine Ratio 45 (6-26); Blood Urea Nitrogen 30 mg/dL (8-23); Calcium 9.5 mg/dL (8.6-10.3); Carbon Dioxide 32 mEq/L (23-29); Chloride 97 mEq/L (98-107); Glucose 149 mg/dL (70-105); Osmolality,Calculated 299 (280-300); Potassium 4.2 mEq/L (3.5-5.1); Sodium 140 mEq/L (136-145); eGFR For African Americans > 60 (> 60); eGFR For Non-African Americans > 60 (> 60)
[2020-12-08] MEDS ORDERED: *HR* Warfarin 5 MG TABLET PO ONE (18:00)
[2020-12-08] MEDS: Melatonin 3 MG TABLET PO PRN (20:21)
[2020-12-09] MEDS: Ipratropium/Albuterol Neb 3 ML IH SCH ×6 (03:53→23:50)
[2020-12-09] MEDS: Amoxicillin 500 MG CAPSULE PO SCH ×2 (08:09→15:45)
[2020-12-09] MEDS: carvediloL 25 MG TABLET PO SCH ×2 (08:09→17:40)
[2020-12-09] MEDS: Loratadine 10 MG TABLET PO SCH (08:10)
[2020-12-09] MEDS: Nystatin POWDER 30 GM BOTTLE TP SCH ×3 (08:10→20:24)
[2020-12-09] MEDS: Furosemide 20 MG/2 ML VIAL IVP SCH (08:10)
[2020-12-09 09:40] LABS: Hematocrit 41.6 % (35.3-44.9); Hemoglobin 12.2 g/dL (11.5-15.4); Mean Corpuscular HGB Conc 29.3 g/dL (31.6-35.5); Mean Corpuscular Volume 85.2 fL (83.0-100.0); Mean Platelet Volume 8.9 fL (9.4-12.4); Platelet Count 190 K/mcL (140-400); Red Blood Count 4.88 M/mcL (3.82-4.97); Red Cell Distribution Width 17.1 % (11.5-14.5); White Blood Count 9.5 K/mcL (4.3-11.1)
[2020-12-09 09:56] LABS: BUN/Creatinine Ratio 41 (6-26); Blood Urea Nitrogen 30 mg/dL (8-23); Calcium 9.6 mg/dL (8.6-10.3); Carbon Dioxide 35 mEq/L (23-29); Chloride 97 mEq/L (98-107); Glucose 132 mg/dL (70-105); Osmolality,Calculated 294 (280-300); Potassium 4.2 mEq/L (3.5-5.1); Sodium 138 mEq/L (136-145); eGFR For African Americans > 60 (> 60); eGFR For Non-African Americans > 60 (> 60)
[2020-12-09 09:58] LABS: INR 1.8; Prothrombin Time 20.4 Seconds (9.4-12.1)
[2020-12-09 13:36] LABS: Influenza A PCR Negative (Negative); Influenza B PCR Negative (Negative); Resp. Syncytial Virus PCR Negative (Negative); SARS-CoV-2 by PCR (In House) Negative (Negative)
[2020-12-09] MEDS ORDERED: 0.9 % Sodium Chloride 250 ML IV ONE (15:33)
[2020-12-09] MEDS ORDERED: *HR* Warfarin 5 MG TABLET PO ONE (18:00)
[2020-12-09] MEDS: Acetaminophen 325 MG TABLET PO PRN (20:23)
[2020-12-09] MEDS: Melatonin 3 MG TABLET PO PRN (20:24)
[2020-12-09 23:19] LABS: Amorphous Sediment,Urine Few per hpf (None-Few); Bilirubin,Urine Negative (Negative); Blood,Urine Trace (Negative); Clarity,Urine Clear (Clear); Color,Urine Yellow (Yellow); Glucose,Urine (UA) Normal (Normal); Ketones,Urine Negative (Negative); Leukocyte Esterase,Urine Trace (Negative); Mucus,Urine Few per lpf (None-Few); Nitrite,Urine Negative (Negative); PH,Urine 7.5 pH Units (5.0-8.0); Protein,Urine Trace mg/dL (Neg-Trace); Specific Gravity,Urine 1.022 (1.010-1.025); Squamous Epithelial Cell,Urine Few per hpf (None-Few); WBC,Urine 0-3 per hpf (0-3)
[2020-12-10] MEDS: Ipratropium/Albuterol Neb 3 ML IH SCH ×4 (03:44→16:39)
[2020-12-10] MEDS ORDERED: Furosemide 40 MG TABLET PO SCH (09:00)
[2020-12-10] MEDS: carvediloL 25 MG TABLET PO SCH ×2 (09:11→18:02)
[2020-12-10] MEDS: Loratadine 10 MG TABLET PO SCH (09:11)
[2020-12-10] MEDS: Nystatin POWDER 30 GM BOTTLE TP SCH ×2 (09:12→18:00)
[2020-12-10] MEDS: Acetaminophen 325 MG TABLET PO PRN (09:18)
[2020-12-10 09:29] LABS: INR 1.9; Prothrombin Time 21.9 Seconds (9.4-12.1)
[2020-12-10 14:25] VITALS: BP 123/71; PULSE 78; TEMP 98.3
[2020-12-10 18:37] VITALS: O2SAT 96
== END 2020-12-10 19:14 | DRG 291 ==
LOC: 3ANU 16:52 → EMEROOARM 16:52 → SUATTDRO 20:10 → 3ANU 20:41 → SUATTDRO 11-30 16:24
PROVIDERS: ADMIT Internal Medicine; ATTEND Internal Medicine

== ENCOUNTER 2021-01-03 08:23 | Observation (INO) ==
[2021-01-03 09:55] LABS: Basophils # 0.1 K/mcL (0.0-0.2); Basophils % 0.5 %; Eosinophils # 0.1 K/mcL (0.0-0.6); Eosinophils % 1.3 %; Hematocrit 42.2 % (35.3-44.9); Hemoglobin 12.7 g/dL (11.5-15.4); Immature Granulocytes % 1.2 % (0-4); Lymphocytes # 1.1 K/mcL (0.6-4.6); Lymphocytes % 10.6 %; Mean Corpuscular HGB Conc 30.1 g/dL (31.6-35.5); Mean Corpuscular Hemoglobin 25.3 pg (28.0-33.3); Mean Corpuscular Volume 84.2 fL (83.0-100.0); Mean Platelet Volume 8.3 fL (9.4-12.4); Monocytes # 0.6 K/mcL (0.0-1.3); Neutrophils # 8.4 K/mcL (1.6-8.9); Platelet Count 256 K/mcL (140-400); Red Blood Count 5.01 M/mcL (3.82-4.97); Red Cell Distribution Width 17.2 % (11.5-14.5); Segmented Neutrophils % 80.4 %; White Blood Count 10.4 K/mcL (4.3-11.1)
[2021-01-03 10:18] LABS: BUN/Creatinine Ratio 19 (6-26); Blood Urea Nitrogen 17 mg/dL (8-23); Calcium 9.6 mg/dL (8.6-10.3); Carbon Dioxide 27 mEq/L (23-29); Chloride 106 mEq/L (98-107); Glucose 120 mg/dL (70-105); Osmolality,Calculated 297 (280-300); Potassium 3.5 mEq/L (3.5-5.1); Sodium 142 mEq/L (136-145); Troponin I < 0.03 ng/mL (< 0.04); eGFR For African Americans > 60 (> 60); eGFR For Non-African Americans > 60 (> 60)
[2021-01-03 10:34] LABS: Bacteria,Urine Few per hpf (None-Few); Bilirubin,Urine Negative (Negative); Blood,Urine Small (Negative); Clarity,Urine Turbid (Clear); Color,Urine Yellow (Yellow); Glucose,Urine (UA) Normal (Normal); Hyaline Casts,Urine Few per lpf (None Seen); Ketones,Urine Negative (Negative); Leukocyte Esterase,Urine Trace (Negative); Mucus,Urine Many per lpf (None-Few); Nitrite,Urine Negative (Negative); PH,Urine 5.5 pH Units (5.0-8.0); Protein,Urine 30 mg/dL (Neg-Trace); Specific Gravity,Urine 1.028 (1.010-1.025); Squamous Epithelial Cell,Urine Few per hpf (None-Few)
[2021-01-03 12:25] LABS: Prothrombin Time 22.7 Seconds (9.4-12.1)
[2021-01-03 12:47] LABS: Influenza A PCR Negative (Negative); Influenza B PCR Negative (Negative); Resp. Syncytial Virus PCR Positive (Negative)
[2021-01-03 12:51] LABS: SARS-CoV-2 by PCR (In House) Negative (Negative)
[2021-01-03 12:51] LABS: Magnesium 1.6 mg/dL (1.6-2.6)
[2021-01-03] MEDS ORDERED: cefTRIAXone 1,000 MG in Water for inj. (sterile) 10 ML IVP ONE (13:25)
[2021-01-03] MEDS ORDERED: Naloxone 0.4 MG/ML INJ IVP PRN (13:58)
[2021-01-03] MEDS ORDERED: Ondansetron 4 MG/2 ML VIAL IVP PRN (13:58)
[2021-01-03] MEDS ORDERED: traZODone 50 MG TABLET PO PRN (15:00)
[2021-01-03] MEDS: carvediloL 25 MG TABLET PO SCH (17:43)
[2021-01-03] MEDS ORDERED: Warfarin perPT PO PRN (18:00)
[2021-01-03] MEDS ORDERED: *HR* Warfarin 5 MG TABLET PO ONE (18:00)
[2021-01-03] MEDS: Acetaminophen 325 MG TABLET PO PRN (18:07)
[2021-01-04 02:11] LABS: Basophils % 0.5 %; Eosinophils # 0.2 K/mcL (0.0-0.6); Eosinophils % 2.7 %; Hematocrit 38.2 % (35.3-44.9); Hemoglobin 11.7 g/dL (11.5-15.4); Immature Granulocytes % 0.9 % (0-4); Lymphocytes # 1.3 K/mcL (0.6-4.6); Mean Corpuscular HGB Conc 30.6 g/dL (31.6-35.5); Mean Corpuscular Hemoglobin 26.3 pg (28.0-33.3); Mean Corpuscular Volume 85.8 fL (83.0-100.0); Mean Platelet Volume 8.3 fL (9.4-12.4); Monocytes # 0.6 K/mcL (0.0-1.3); Monocytes % 8.4 %; Neutrophils # 4.5 K/mcL (1.6-8.9); Platelet Count 207 K/mcL (140-400); Red Blood Count 4.45 M/mcL (3.82-4.97); Red Cell Distribution Width 17.4 % (11.5-14.5); Segmented Neutrophils % 67.5 %; White Blood Count 6.6 K/mcL (4.3-11.1)
[2021-01-04 02:25] LABS: INR 2.2; Prothrombin Time 24.9 Seconds (9.4-12.1)
[2021-01-04 02:31] LABS: BUN/Creatinine Ratio 21 (6-26); Blood Urea Nitrogen 19 mg/dL (8-23); Calcium 9.3 mg/dL (8.6-10.3); Carbon Dioxide 27 mEq/L (23-29); Chloride 108 mEq/L (98-107); Glucose 127 mg/dL (70-105); Magnesium 1.6 mg/dL (1.6-2.6); Osmolality,Calculated 298 (280-300); Phosphorous 3.9 mg/dL (2.7-4.5); Potassium 3.8 mEq/L (3.5-5.1); Sodium 142 mEq/L (136-145); eGFR For African Americans > 60 (> 60); eGFR For Non-African Americans > 60 (> 60)
[2021-01-04] MEDS: carvediloL 25 MG TABLET PO SCH ×2 (08:05→16:53)
[2021-01-04] MEDS: cefTRIAXone 1,000 MG in Water for inj. (sterile) 10 ML IVP SCH (08:06)
[2021-01-04] MEDS ORDERED: *HR* Warfarin 5 MG TABLET PO ONE (18:00)
[2021-01-05] MEDS: Acetaminophen 325 MG TABLET PO PRN ×2 (01:38→14:54)
[2021-01-05 06:26] LABS: Basophils # 0.1 K/mcL (0.0-0.2); Basophils % 0.7 %; Eosinophils # 0.2 K/mcL (0.0-0.6); Eosinophils % 2.8 %; Hematocrit 37.9 % (35.3-44.9); Hemoglobin 11.4 g/dL (11.5-15.4); Lymphocytes # 1.7 K/mcL (0.6-4.6); Mean Corpuscular HGB Conc 30.1 g/dL (31.6-35.5); Mean Corpuscular Hemoglobin 25.6 pg (28.0-33.3); Mean Platelet Volume 8.7 fL (9.4-12.4); Monocytes # 0.6 K/mcL (0.0-1.3); Monocytes % 9.3 %; Neutrophils # 4.2 K/mcL (1.6-8.9); Platelet Count 223 K/mcL (140-400); Red Blood Count 4.46 M/mcL (3.82-4.97); Red Cell Distribution Width 17.2 % (11.5-14.5); Segmented Neutrophils % 61.2 %; White Blood Count 6.9 K/mcL (4.3-11.1)
[2021-01-05 06:29] LABS: Prothrombin Time 33.7 Seconds (9.4-12.1)
[2021-01-05 06:45] LABS: BUN/Creatinine Ratio 21 (6-26); Blood Urea Nitrogen 16 mg/dL (8-23); Calcium 9.3 mg/dL (8.6-10.3); Carbon Dioxide 28 mEq/L (23-29); Chloride 106 mEq/L (98-107); Glucose 112 mg/dL (70-105); Osmolality,Calculated 294 (280-300); Phosphorous 3.4 mg/dL (2.7-4.5); Potassium 3.6 mEq/L (3.5-5.1); Sodium 141 mEq/L (136-145); eGFR For African Americans > 60 (> 60); eGFR For Non-African Americans > 60 (> 60)
[2021-01-05 08:44] LABS: Magnesium 1.6 mg/dL (1.6-2.6)
[2021-01-05] MEDS: cefTRIAXone 1,000 MG in Water for inj. (sterile) 10 ML IVP SCH (10:03)
[2021-01-05] MEDS: carvediloL 25 MG TABLET PO SCH ×2 (10:04→17:28)
[2021-01-05] MEDS ORDERED: *HR* LORazepam 2 MG/ML VIAL IM STA (12:23)
[2021-01-05 14:56] VITALS: BP 149/78; PULSE 73; TEMP 97.9; O2SAT 94
[2021-01-05] MEDS ORDERED: FLU Vac QV 21-22 (6Month+)/PF 0.5 ML SYRINGE IM ONE (16:52)
== END 2021-01-05 19:09 ==
LOC: 4WAOSI 08:23 → EMEROOARM 08:23 → SUATTDRO 13:40 → 3ANU 15:15
PROVIDERS: ADMIT Family Medicine; ATTEND Student in an Organized Health Care Education/Training Program